=== PATIENT | female | born 1970 | race Caucasian/White ===

== ENCOUNTER 2016-02-28 13:31 | Emergency (ER) | payer OTHER ==
--- NOTE | 2016-02-28 13:33 | PDOC ---
General Adult HPI - General Chief Complaint: Eye Problem / Injury Stated Complaint: itchy eye Date Seen by Provider: 02/28/16 Time Seen by Provider: 13:40 Source: POSITIVE: Patient Exam Limitations: POSITIVE: No limitations Nurse's Notes Reviewed & Considered: Yes - History of Present Illness Initial Comment: Julia is a 46-year-old female who presents to the emergency department with possible infection on tatoo and right eye. Patient reports that she had a tattoo early in February. Since that time she has had some moderate itching at the site. Now developed erythema. There is mild burning. No exacerbating or relieving factors. Mild overall severity. She reports she did scratch site and then touched her right eye and now has erythema and swelling of the infraorbital tissues on the right. Patient denies any fevers or chills. There are no visual changes. Patient denies any eye pain. She has tried a topical Benadryl and antibiotic ointment with no improvement in her symptoms. Have you received a tetanus shot in the past 10 years?: Unknown - Patient Home Medications Home Medications: Home Medications Aripiprazole [Abilify] 1 tab PO DAILY tab 01/04/16 Lamotrigine [Lamictal] 2 tab PO DAILY tab 01/04/16 [place] Carbonate 1 cap PO DAILY cap 01/04/16 [place] Carbon[place] 1.5 tab PO bedtime tab 01/04/16 Trazodone HCl 2 tab PO DAILY tab 01/04/16 Zolpidem Tartrate [Ambien] 10 mg PO BEDTIME 02/28/16 - Patient Allergies Allergies/Adverse Reactions: Allergies Allergy/AdvReac Type Severity Reaction Status Date / Time acetaminophen [From Percocet] Allergy headache Verified 02/28/16 13:43 oxycodone HCl [From Percocet] Allergy headache Verified 02/28/16 13:43 paint Allergy HIVES Uncoded 02/28/16 13:43 Past Medical History - heen HEENT History: Denies History Cardiovascular History: Denies History Respiratory History: Denies History Gastrointestinal History: Denies History Genitourinary History: Denies History Endocrine History: Denies History Musculoskeletal History: Back Pain, Other (please comment) Additional Musculoskeletal History: chronic pain Neurological History: Denies History Blood Disorders: Denies History Psychiatric History: Depression, Bi Polar Disorder, ADD History of Sexually Transmitted Diseases: No Cancer History: Denies History History of Other Communicable Diseases: No Alcohol Use: None Substance Use Type: None Previous Surgical History: No Anesthesia Reactions: No Malignant Hyperthermia: No Past Medical History Reviewed: Reviewed - No Changes ROS - Limitations ROS Limitations: No Limitations Constitution: DENIES: Chills, Fever Cardiovascular: REPORTS: Denies Cardiac Symptoms Respiratory: REPORTS: Denies Resp Symptoms Neurological: REPORTS: Denies Neuro Symptoms Gastrointestinal: REPORTS: Denies GI Symptoms Endocrine: REPORTS: Denies Symptoms Musculoskeletal: REPORTS: Denies MS Symptoms Genitourinary: REPORTS: Denies Symptoms Eyes: REPORTS: Other (Swelling of the right infraorbital region) ENT: REPORTS: Denies Symptoms Skin: REPORTS: Other (Erythema and itchiness on the back at location of recent tattoo) Lympathic: REPORTS: Denies Lympathic Symptoms Immunologic: POSITIVE: Denies Symptoms Psychiatric: POSITIVE: Denies Psych Symptoms General Adult Exam - General Appearance General Appearance: POSITIVE: Alert, Cooperative, No Acute Distress - HEENT HEENT: POSITIVE: Head Inspection Nml, Other (There is some slight infraorbital erythema. There is some crusting lesion. He has no conjunctival injection. There is no drainage or discharge. Extraocular muscles are intact without pain. Pupils equal round and reactive to light) - Neck Neck: POSITIVE: Normal Inspection. NEGATIVE: Lymphadenopathy - Respiratory Respiratory: POSITIVE: No Respiratory Distress, Breath Sounds Normal - Cardiovascular Cardiovascular: POSITIVE: Regular Rate & Rhythm, No Murmur, No Gallop - Abdomen Abdomen: Soft: (All Quadrants), Normal Bowel Sounds: (All Quadrants), Denies Tenderness: (All Quadrants) - Back Back: POSITIVE: Normal Inspection - Skin Skin: POSITIVE: Other (On the upper back there is an area of tattoo. Surrounding this tattoo there is erythema. Some follicular nature. Appears to have some slight crusting. No drainage or discharge. No significant warmth or pain to palpation. No fluctuance.) - Extremities Extremity: Non-Tender: (All Extremities), Normal ROM: (All Extremities), Normal Inspection: (All Extremities) - Neurological / Psychological Neurological: POSITIVE: Affect Apporpriate General Adult Progress - Patient's Progress MDM / ED Course: Julia is a 46-year-old female who presents to the emergency department with multiple complaints. With regards to her tattoo is most likely is an infection. It does seem to have spread to the infraorbital tissues of the right eye contact. There is no history or examination findings to suggest that this is a retro-orbital cellulitis. It appears to be superficial. It does have the appearance of likely strep infection. Patient does not have a history of MRSA. We will cover her with Keflex and have her follow up with primary care provider for reevaluation. Patient instructed to return to the emergency department for any worsening symptoms. Patient Care Time - Estimated PCT Patient Care Time (In Minutes): 15 Vital Signs - Recent Vital Signs Vital Signs: Vital Signs (Last 8 hours) Temp Pulse Resp BP Pulse Ox 02/28/16 13:31 97.4 F 87 16 107/80 91 - VS Reviewed Vital Signs Reviewed: Yes Discharge Clinical Impression: Abscess or cellulitis of back, Preseptal cellulitis of right eye Discharge Disposition: Discharged to Home Condition: Stable Additional Instructions: Thank you for coming to the emergency department. This appears to be an infection of the skin that has spread around the eye. Please take antibiotics as prescribed. Please use benadryl 25-50 mg 2-3 times a day to help with swelling and itching. Please recheck with primary care provider if not improving and return to the emergency department sooner if worsening. Follow Up With: PAULY NAVARRETE [Primary Care Provider] -
[2016-02-28 14:05] VITALS: RESP 16; TEMP 97.4
== END 2016-02-28 14:14 | disposition home or self-care (01) ==
LOC: ER 13:31
DX: L03.213 Periorbital cellulitis (principal); L03.312 Cellulitis of back [any part except buttock and flank]
CPT/HCPCS: 99282

== ENCOUNTER 2016-03-31 21:55 | Emergency (ER) | payer OTHER ==
[2016-03-31 22:28] VITALS: RESP 18; TEMP 99.7
[2016-03-31] MEDS ORDERED: Mupirocin Ointment 2% 22 gm Tube TOPICAL SCH (22:30)
[2016-03-31] MEDS ORDERED: Mupirocin Ointment 2% 22 gm Tube TOPICAL ONE (22:30)
--- NOTE | 2016-03-31 22:31 | PDOC ---
Skin Rash/Insect/Abscess HPI - General Chief Complaint: Integumentary Stated Complaint: Skin concern from home tattoo Date Seen by Provider: 03/31/16 Time Seen by Provider: 22:26 - History of Present Illness Initial Comments: Patient is a very nice 46-year-old woman who presents to the emergency department with a wound on her left arm that has not been healing over the last 3 or 4 weeks. She states that she had a friend trying to give her a tattoo near the antecubital fossa of her left arm when it started to bleed heavily so she asked the mac artist to stop. She states that she had a pretty good hematoma under the skin there and that she has been doctoring this at home for the last 3 or 4 weeks and he continues to have some mild redness some swelling and area of open wound down to subcutaneous tissue in the antecubital fossa. She denies any fever or chills she denies any distal swelling or rash she states that the rash that is present around the opening is pruritic in nature. She does not get any purulence from the wound. She states the wound is closing somewhat and getting smaller over time. Have you received a tetanus shot in the past 10 years?: Unknown - Patient Home Medications Home Medications: Home Medications Aripiprazole [Abilify] 1 tab PO DAILY tab 01/04/16 Lamotrigine [Lamictal] 2 tab PO DAILY tab 01/04/16 [place] Carbonate 1 cap PO DAILY cap 01/04/16 [place] Carbonate 1.5 tab PO bedtime tab 01/04/16 Trazodone HCl 2 tab PO DAILY tab 01/04/16 Zolpidem Tartrate [Ambien] 10 mg PO BEDTIME 02/28/16 - Patient Allergies Allergies/Adverse Reactions: Allergies Allergy/AdvReac Type Severity Reaction Status Date / Time paint Allergy HIVES Uncoded 03/31/16 22:04 Past Medical History - heen HEENT History: Denies History Cardiovascular History: Denies History Respiratory History: Denies History Gastrointestinal History: Denies History Genitourinary History: Denies History Endocrine History: Denies History Musculoskeletal History: Back Pain, Other (please comment) Prosthesis or Implant: No Additional Musculoskeletal History: chronic pain Neurological History: Denies History Blood Disorders: Denies History Psychiatric History: Depression, Bi Polar Disorder, ADD History of Sexually Transmitted Diseases: No Cancer History: Denies History History of MDRO: No History of Other Communicable Diseases: No Alcohol Use: None Substance Use Type: None Previous Surgical History: No Type / Date of Surgery: LEFT ARM, BILATERAL KNEE SCOPE, CHOLECYSTECTOMY, TUBAL LIGATION Anesthesia Reactions: No Malignant Hyperthermia: No Significant Family History: No pertinent family hx Past Medical History Reviewed: Reviewed - No Changes ROS - Limitations ROS Limitations: No Limitations Constitution: REPORTS: Denies Symptoms. DENIES: Chills, Fever Cardiovascular: REPORTS: Denies Cardiac Symptoms, Chest Pain Respiratory: REPORTS: Denies Resp Symptoms Neurological: REPORTS: Denies Neuro Symptoms Skin Rash/Insect/Abscess Exam - General Appearance General Appearance: REPORTS: Alert, Cooperative, No Acute Distress - Skin Skin: REPORTS: Other (No substantial redness or sign of cellulitis She has a small approximately 1 cm x 1 cm open wound in the left antecubital fossa open to subcutaneous tissue with some dried appearing granulation tissue in the base. There is no evidence of sidney cellulitis there is a pruritic maculopapular rash around this area and some tenderness with palpation around the area as well.) Skin Rash/Abscess Progress - Patient's Progress MDM / ED Course: This wound appears to be slowly healing with some appropriate granulation tissue and wound margin appearing fairly healthy. No evidence of substantial cellulitis or infection. I think she is likely developing some allergic reaction or response to the Neosporin she is using so I've asked her to stop using that and use some Bactroban with dressing changes over the next few days and have this evaluated by a primary care provider they can follow it over time as soon as possible. She understands the starts to become increasingly red swollen tender or have purulent discharge and is return to the hospital for further evaluation. Patient Care Time - Estimated PCT Patient Care Time (In Minutes): 20 Vital Signs - VS Reviewed Vital Signs Reviewed: Yes Discharge Clinical Impression: Open arm wound Qualifiers: Encounter type: initial encounter Laterality: left Qualifier Code: (S41.102A) Unspecified open wound of left upper arm, initial encounter Discharge Disposition: Discharged to Home Condition: Stable Patient Instructions Given at Discharge: Acute Wound Care (ED) Additional Instructions: Change dressing twice a day using Bactroban with dressing change Follow-up with primary care provider soon as possible to continue monitoring this wound If this begins to worsen have increased drainage or increased redness pain or swelling return to the emergency department for further evaluation Follow Up With: NONE,NONE [Primary Care Provider] -
== END 2016-03-31 22:37 | disposition home or self-care (01) ==
LOC: ER 21:55
DX: S41.102A Unspecified open wound of left upper arm, initial encounter (principal)
CPT/HCPCS: 99282

== ENCOUNTER → 2016-06-03 | Outpatient (CLI) | payer OTHER | LOC: MMPC 09:00 | DX: R22.42 Localized swelling, mass and lump, left lower limb (principal) | CPT/HCPCS: 99212; G0463 ==

== ENCOUNTER 2016-06-19 15:40 | Emergency (ER) | payer OTHER ==
[2016-06-19] MEDS ORDERED: Sodium Chloride 0.9% 1,000 ML PRIMARY IV ONE (15:52)
[2016-06-19] MEDS ORDERED: MORPHINE SULFATE 4 MG/1 ML IVP ONE ×2 (15:52→18:05)
[2016-06-19] MEDS ORDERED: ONDANSETRON 4 MG/2 ML VIAL IVP ONE ×2 (15:52→18:22)
--- NOTE | 2016-06-19 15:58 | PDOC ---
Abdomen/Flank HPI - General Chief Complaint: Abdomen Pain Stated Complaint: ABD PAIN/FIRMNESS, NAUSEA, TROUBLE PASSING STOOL Date Seen by Provider: 06/19/16 Time Seen by Provider: 15:54 Source: POSITIVE: Patient Exam Limitations: POSITIVE: No limitations Nurse's Notes Reviewed & Considered: Yes - History of Present Illness Initial Comments: Patient comes in today with a chief complaint of abdominal pain. Patient was diagnosed on Thursday with diverticulitis. She was started on Cipro and Flagyl. She made a trip today to [place], and on the way back developed abdominal distention and increasing pain. She attempted to have a bowel movement and had very little passage of stool or gas. Her abdominal pain is continued along with increasing distention. It's but denies any fever and chills. She states she has no nausea no vomiting. No headache, no chest pain, no shortness of breath, no cough. Hematuria or dysuria. No rashes. Body Location Affected: REPORTS: Abdomen Timing: REPORTS: Constant Duration: <1 week Severity: Moderate Quality: REPORTS: "Pain", Sharpness, Stabbing, Throbbing, Tenderness (Left lower quadrant radiating to generalized abdomen) Abdominal Pain Onset Location: REPORTS: LLQ, Generalized abdomen Abdominal Pain Radiation: REPORTS: RUQ, LUQ, Periumbilical Context: REPORTS: None Modifying Factors: improves with: Nothing Associated Symptoms: REPORTS: Diaphoresis, Other (Difficulty passing gas or stool) Similar Symptoms Previously: Yes Recent Care Received: REPORTS: Recently Seen, Treated by MD Any Prior Injuries Related to Current Complaint?: No - Patient Home Medications Home Medications: Home Medications Trazodone HCl 2 tab PO DAILY tab 01/04/16 HYDROcodone/APAP 5/325 Tab [[place] 5/325 Tab] 1 tab PO Q4H PRN 06/19/16 - Patient Allergies Allergies/Adverse Reactions: Allergies Allergy/AdvReac Type Severity Reaction Status Date / Time No Known Drug Allergies Allergy NOT Verified 06/19/16 15:47 APPLICABLE paint Allergy HIVES Uncoded 06/19/16 15:47 Past Medical History - heen HEENT History: Denies History Cardiovascular History: Denies History Respiratory History: Denies History Gastrointestinal History: Denies History Genitourinary History: Denies History Endocrine History: Denies History Musculoskeletal History: Back Pain, Other (please comment) Prosthesis or Implant: No Additional Musculoskeletal History: chronic pain Neurological History: Denies History Blood Disorders: Denies History Psychiatric History: Depression, Bi Polar Disorder, ADD History of Sexually Transmitted Diseases: No Cancer History: Denies History History of MDRO: No History of Other Communicable Diseases: No Alcohol Use: None Substance Use Type: None Previous Surgical History: No Type / Date of Surgery: LEFT ARM, BILATERAL KNEE SCOPE, CHOLECYSTECTOMY, TUBAL LIGATION Anesthesia Reactions: No Malignant Hyperthermia: No Significant Family History: No pertinent family hx ROS - Limitations ROS Limitations: No Limitations Constitution: REPORTS: Diaphoresis Cardiovascular: REPORTS: Denies Cardiac Symptoms Respiratory: REPORTS: Denies Resp Symptoms Neurological: REPORTS: Denies Neuro Symptoms Gastrointestinal: REPORTS: Abdominal Pain, Constipation Endocrine: REPORTS: Denies Symptoms Musculoskeletal: REPORTS: Denies MS Symptoms Genitourinary: REPORTS: Denies Symptoms Eyes: REPORTS: Denies Symptoms ENT: REPORTS: Denies Symptoms Skin: REPORTS: Denies Skin Symptoms Lympathic: REPORTS: Denies Lympathic Symptoms Immunologic: POSITIVE: Denies Symptoms Psychiatric: POSITIVE: Denies Psych Symptoms Abdominal/Flank Pain PE - General Appearance General Appearance: POSITIVE: Alert, Cooperative, No Evidence of Trauma, Moderate Distress - HEENT HEENT: POSITIVE: Head Inspection Nml, Eyes Inspection Nml, Ears Inspection Nml, Nose Inspection Nml, PERRL, EOMI - Neck Neck: POSITIVE: Normal Inspection, No Apparent Injury - Respiratory Respiratory: POSITIVE: No Respiratory Distress, Breath Sounds Normal, Chest Non- Tender - Cardiovascular Cardiovascular: POSITIVE: Regular Rate and Rhythm, Heart Sounds Normal - Abdomen Abdomen: Soft: (All Quadrants), Tenderness Noted: (All Quadrants) (greatest in the left lower quadrant), Hyperactive Bowel Sounds: (All Quadrants), Distention : (All Quadrants), Guarding: (All Quadrants) (guarding of the left lower quadrant) - Back Back: POSITIVE: Normal Inspection - Skin Skin: POSITIVE: Intact, Normal For Race, Warm, Dry, No Rash - Extremities Extremity: Non-Tender: (All Extremities), Normal ROM: (All Extremities), Normal Inspection: (All Extremities), Pelvis Stable: (All Extremities) - Neurological Neurological: POSITIVE: Affect Apporpriate, Oriented X3, Motor Normal, Sensation Normal - Psychological Psychiatric: POSITIVE: Affect Appropriate, Mood Appropriate Abdomen Progress - Results Reviewed by me Xrays/CTs/US Reviewed by me: Yes Discussed with Radiologist: Yes Lab Results Reviewed: Yes Lab Results:: Laboratory Results 06/19/16 06/19/16 Range/Units 15:52 16:24 WBC 5.41 (4.8-10.8) 10^3/uL RBC 4.32 (4.20-5.40) 10^6/uL Hgb 13.5 (12.0-16.0) g/dL Hct 41.6 (37.0-47.0) % MCV 96.3 (81-99) FL MCH 31.3 H (27-31) PG MCHC 32.5 L (33-37) g/dL RDW Std Deviation 45.0 (39-50) fL RDW Coeff of [place] 13.2 (11.5-14.5) % Plt Count 210 (140-350) 10*3/uL MPV 9.9 (7.4-12.2) FL Immature Gran % (Auto) 0.6 (0-5) % Neut % (Auto) 64.4 (50-80) % Lymph % (Auto) 24.6 (10-50) % [place] % (Auto) 7.0 (5-15) % Eos % (Auto) 3.0 (0-8) % Baso % (Auto) 0.4 (0-1) % Immature Gran # (Auto) 0.03 10*3/UL Neut # (Auto) 3.49 10*3/UL Lymph # (Auto) 1.33 10*3/uL [place] # (Auto) 0.38 (0.3-0.8) 10*3/UL Eos # (Auto) 0.16 10*3/UL Baso # (Auto) 0.02 10*3/UL WBC Morphology Comment Normal morphology (NORM) Plt Morphology Comment Normal morphology (NORM) RBC Morph Comment Normal morphology (NORM) VBG pH 7.35 (7.32-7.42) VBG pCO2 48 (45-55) mmHg VBG HCO3 27 H (22-26) mmol/L VBG Base Excess 1 (-2-2) MMOL/L Sodium 140 (135-145) meq/L Potassium 3.7 L (3.8-5.2) meq/L Chloride 103 (98-112) meq/L Carbon Dioxide 27 (23-33) meq/L Anion Gap 10 (5-20) BUN 13 (7-22) mg/dL Creatinine 0.8 (0.50-1.20) mg/dL Estimated GFR > 60 (>60 ml/min/1.73m(2)) BUN/Creatinine Ratio 16.25 (6-20) Glucose 109 (78-110) mg/dL Calculated Osmolality 290.0 (267-292) mOsm/kg Lactic Acid 1.4 (0.70-2.10) MMOL/L Calcium 8.6 L (8.7-10.7) mg/dL Magnesium 1.7 (1.6-2.4) mg/dL Total Bilirubin 0.7 (0.3-1.2) mg/dL AST 27 (8-39) IU/L ALT 56 H (9-52) IU/L Alkaline Phosphatase 63 (38-126) IU/L C-Reactive Protein 6.7 H (0.0-0.9) mg/dL Total Protein 6.8 (6.1-8.0) g/dL Albumin 3.6 (3.5-4.8) g/dL Globulin 3.1 (2.50-4.10) g/dL Albumin/Globulin Ratio 1.10 L (1.3-2.0) mg/g - Patient's Progress Pain Medication Addressed: POSITIVE: Yes Re-examine Time: 18:38 Status: POSITIVE: Improved MDM / ED Course: Patient was evaluated, an IV started, blood drawn and sent to the lab for studies, radiographic examinations were obtained. Patient received a liter of normal saline, morphine sulfate, Zofran and her pain has improved. Findings: CT scan shows acute diverticulitis without abscess or perforation. CBC shows a normal white count. Assessment diverticulitis without evidence of perforation or abscess. Presently on ciprofloxacin and Flagyl. Plan: Discharge home. Continue with prescribed antibiotics and hydrocodone as prescribed. She receives a prescription for Zofran. Instructions for clear liquids today, bland diet tomorrow, advance diet slowly. She is to follow-up with her primary care physician. She has instructions to return to the emergency department if she begins running a fever, increasing pain, diarrhea with blood or other concerns. - Consult Counseled: POSITIVE: Patient, Family, RE: Lab Results, RE: Radiology Results, RE : DX, RE: Need for F/U Patient Care Time - Estimated PCT Patient Care Time (In Minutes): 45 Vital Signs - Recent Vital Signs Vital Signs: Vital Signs (Last 8 hours) Temp Pulse Resp BP Pulse Ox 06/19/16 15:40 96.9 F 84 17 117/75 96 - VS Reviewed Vital Signs Reviewed: Yes Discharge Clinical Impression: Diverticulitis of intestine Discharge Disposition: Discharged to Home Condition: Stable Patient Instructions Given at Discharge: Diverticulitis (ED), Diverticulitis Diet (ED)
[2016-06-19 15:59] LABS: BASOPHILS # (AUTO) 0.02 10*3/UL; BASOPHILS % (AUTO) 0.4 % (0-1); EOSINOPHILS # (AUTO) 0.16 10*3/UL; HEMATOCRIT 41.6 % (37.0-47.0); HEMOGLOBIN 13.5 g/dL (12.0-16.0); LYMPHOCYTES # (AUTO) 1.33 10*3/uL; MEAN CORPUSCULAR HEMOGLOBIN 31.3 PG (27-31); MEAN CORPUSCULAR HGB CONC 32.5 g/dL (33-37); MEAN CORPUSCULAR VOLUME 96.3 FL (81-99); MEAN PLATELET VOLUME 9.9 FL (7.4-12.2); MONOCYTES # (AUTO) 0.38 10*3/UL (0.3-0.8); NEUTROPHILS # (AUTO) 3.49 10*3/UL; NEUTROPHILS % (AUTO) 64.4 % (50-80); RED BLOOD COUNT 4.32 10^6/uL (4.20-5.40)
[2016-06-19 16:01] LABS: PLATELET MORPHOLOGY COMMENT NORMAL MORPHOLOGY (NORM); RBC MORPHOLOGY COMMENT NORMAL MORPHOLOGY (NORM); WBC MORPHOLOGY COMMENT NORMAL MORPHOLOGY (NORM)
[2016-06-19 16:18] VITALS: TEMP 96.9
[2016-06-19 16:32] LABS: VENOUS PH 7.35 (7.32-7.42)
[2016-06-19 16:42] LABS: BLOOD UREA NITROGEN 13 mg/dL (7-22); BUN/CREATININE RATIO 16.25 (6-20); C-REACTIVE PROTEIN 6.7 mg/dL (0.0-0.9); CALCIUM 8.6 mg/dL (8.7-10.7); EST GLOMERULAR FILTRATION > 60 (>60 ml/min/1.73m(2)); MAGNESIUM 1.7 mg/dL (1.6-2.4); SERUM ALBUMIN 3.6 g/dL (3.5-4.8)
[2016-06-19] MEDS: NORMAL SALINE 10 ML SYRINGE FLUSH IVP PRN ×2 (18:18→18:22)
--- NOTE | 2016-06-19 18:21 | DI ---
CT ABD W/CN AND PELVIS W/CN,06/19/2016 3:52 PM: Clinical History: Left lower quadrant pain Previous Exam: None at this facility. Findings: Multiple helically acquired CT images are obtained through the abdomen and pelvis following the intra venous administration of contrast. There is no free air nor free fluid. The urinary bladder is unremarkable. The uterus is unremarkable and the appendix is normal. There is a single inflamed diverticulum involv ing the proximal sigmoid colon within the left lower quadrant with fat stranding. There is no associa domo abscess nor free air. Impression: Acute sigmoid diverticulitis without evidence of abscess nor perforation.
[2016-06-19] MEDS ORDERED: NORMAL SALINE 10 ML SYRINGE FLUSH IVP PRN (18:29)
[2016-06-19] MEDS ORDERED: Ondansetron ODT Tab 8 MG TAB PO SCH (18:45)
[2016-06-20 06:04] VITALS: RESP 16
== END 2016-06-19 19:10 | disposition home or self-care (01) ==
LOC: ER 15:40
DX: K57.12 Diverticulitis of small intestine without perforation or abscess without bleeding (principal); R10.84 Generalized abdominal pain
CPT/HCPCS: 36415; 74177; 80053; 82803; 83605; 83735; 85025; 86140; 96361; 96374; 96375; 96376; 99283 ×2; Q0162; J2270; J2405; J7030

== ENCOUNTER → 2016-07-01 | Outpatient (CLI) | payer OTHER | LOC: MMPC 11:11 | PROVIDERS: ATTEND Physician Assistant | DX: J06.9 Acute upper respiratory infection, unspecified (principal); R05 Cough | CPT/HCPCS: 99213; G0463 ==

== ENCOUNTER → 2016-07-02 | Outpatient (CLI) | payer OTHER ==
[2016-07-02 16:33] LABS: FREE T4 (FREE THYROXINE) 0.82 ng/dL (0.93-1.71)
== END ==
LOC: MOB LAB 13:29
PROVIDERS: ATTEND Obstetrics & Gynecology
DX: R94.6 Abnormal results of thyroid function studies (principal); N92.0 Excessive and frequent menstruation with regular cycle; N94.6 Dysmenorrhea, unspecified; F19.90 Other psychoactive substance use, unspecified, uncomplicated; Z11.3 Encounter for screening for infections with a predominantly sexual mode of transmission
CPT/HCPCS: 36415; 84439; 84443; 87491; 87591

== ENCOUNTER 2016-07-06 19:01 | Inpatient (IN) | payer OTHER ==
[2016-07-06] MEDS ORDERED: ONDANSETRON 4 MG/2 ML VIAL IVP ONE (19:15)
[2016-07-06] MEDS ORDERED: MORPHINE SULFATE 4 MG/1 ML IVP ONE ×2 (19:15→21:20)
--- NOTE | 2016-07-06 19:19 | PDOC ---
Abdomen/Flank HPI - General Chief Complaint: Abdomen Pain Stated Complaint: Left lower quadrant pain Date Seen by Provider: 07/06/16 Time Seen by Provider: 19:14 Source: POSITIVE: Patient Exam Limitations: POSITIVE: No limitations Nurse's Notes Reviewed & Considered: Yes - History of Present Illness Initial Comments: Patient was in her normal state of health after she got off work this morning at 0700, she went to bed and when she awoke at 1800 hrs. she was having left lower quadrant pain similar to symptoms from 2 weeks ago. She has chills but no sweats, she has nausea but no vomiting, she does have diarrhea. She states her urine is concentrated and has a strong odor. She denies any headache, chest pain, shortness of breath. She describes her pain as crampy with a sharp component and tenderness in the left lower quadrant. She does have guarding. She just finished 10 days of antibiotic treatment with Cipro and Flagyl. She continues to eat [employer], [employer], and [employer] restaurant food. Body Location Affected: REPORTS: Abdomen Timing: REPORTS: Abrupt Duration: 1 hour Severity: Moderate Quality: REPORTS: Cramping, "Pain", Sharpness, Stabbing, Tenderness Abdominal Pain Onset Location: REPORTS: LLQ Abdominal Pain Radiation: REPORTS: RLQ, Periumbilical Context: REPORTS: Sleep Modifying Factors: improves with: Nothing Associated Symptoms: REPORTS: Chills, Nausea, Diarrhea Similar Symptoms Previously: Yes Recent Care Received: REPORTS: Denies Any Prior Injuries Related to Current Complaint?: No - Patient Home Medications Home Medications: Home Medications Trazodone HCl 2 tab PO DAILY tab 01/04/16 Albuterol Sulfate [Proair Hfa] 1 - 2 puff INH Q4-6H #1 inhaler 07/01/16 Benzonatate 200 mg PO TID #30 cap 07/01/16 Cefdinir 600 mg PO DAILY #20 cap 07/01/16 Cetirizine HCl [Zyrtec] 10 mg PO DAILY #90 tab 07/01/16 Fluticasone Propionate [Flonase Allergy Relief] 9.9 ml TATI BID #1 bottle Guaifenesin/Codeine Phos [Cheratussin Ac Syrup] 5 ml PO Q6H #120 ml 07/01/16 Levothyroxine Sodium 1 tab PO QHS #30 tab 07/02/16 - Patient Allergies Allergies/Adverse Reactions: Allergies Allergy/AdvReac Type Severity Reaction Status Date / Time No Known Drug Allergies Allergy NOT Verified 07/06/16 19:05 APPLICABLE paint Allergy HIVES Uncoded 07/06/16 19:05 Past Medical History - heen HEENT History: Denies History Cardiovascular History: Denies History Respiratory History: Other (please comment) Additional Respiratory History: CURRENTLY BEING TREATED FOR URI Gastrointestinal History: Other (please comment) Additional Gastrointestinal History: DIAGNOSED WITH DIVERTICULITIS 06/19/16 Genitourinary History: Denies History Endocrine History: Denies History Musculoskeletal History: Back Pain, Other (please comment) Prosthesis or Implant: No Additional Musculoskeletal History: chronic pain Neurological History: Denies History Blood Disorders: Denies History Psychiatric History: Depression, Bi Polar Disorder, ADD History of Sexually Transmitted Diseases: No Female Reproductive History: Denies History Obstetrical History: Denies History Cancer History: Denies History In Past Year Been Physically Harmed or Verbally Threatened: No History of MDRO: No History of Other Communicable Diseases: No Tobacco Use: Current Every Day Smoker Alcohol Use: None Substance Use Type: None Previous Surgical History: No Type / Date of Surgery: LEFT ARM, BILATERAL KNEE SCOPE, CHOLECYSTECTOMY, TUBAL LIGATION Anesthesia Reactions: No Malignant Hyperthermia: No Significant Family History: No pertinent family hx ROS - Limitations ROS Limitations: No Limitations Constitution: REPORTS: Chills Cardiovascular: REPORTS: Denies Cardiac Symptoms Respiratory: REPORTS: Denies Resp Symptoms Neurological: REPORTS: Denies Neuro Symptoms Gastrointestinal: REPORTS: Abdominal Pain, Nausea, Diarrhea Endocrine: REPORTS: Denies Symptoms Musculoskeletal: REPORTS: Denies MS Symptoms Genitourinary: REPORTS: Other (Concentrated urine with strong odor) Eyes: REPORTS: Denies Symptoms ENT: REPORTS: Denies Symptoms Skin: REPORTS: Denies Skin Symptoms Lympathic: REPORTS: Denies Lympathic Symptoms Immunologic: POSITIVE: Denies Symptoms Psychiatric: POSITIVE: Denies Psych Symptoms Abdominal/Flank Pain PE - General Appearance General Appearance: POSITIVE: Alert, Cooperative, No Evidence of Trauma, Mild Distress - HEENT HEENT: POSITIVE: Head Inspection Nml, Eyes Inspection Nml, Ears Inspection Nml, Nose Inspection Nml, PERRL, EOMI - Neck Neck: POSITIVE: Normal Inspection, No Apparent Injury - Respiratory Respiratory: POSITIVE: No Respiratory Distress, Breath Sounds Normal, Chest Non- Tender - Cardiovascular Cardiovascular: POSITIVE: Regular Rate and Rhythm, Heart Sounds Normal Peripheral Pulses: Radial (L): 3+ - Chest Chest: POSITIVE: Non Tender - Abdomen Abdomen: Soft: (All Quadrants), Normal Bowel Sounds: (All Quadrants), Tenderness Noted: (LLQ), Guarding: (LLQ) - Back Back: POSITIVE: Normal Inspection - Skin Skin: POSITIVE: Intact, Normal For Race, Warm, Dry, No Rash - Extremities Extremity: Non-Tender: (All Extremities), Normal ROM: (All Extremities), Normal Inspection: (All Extremities), Pelvis Stable: (All Extremities) - Neurological Neurological: POSITIVE: Affect Apporpriate, Oriented X3, Motor Normal, Sensation Normal - Psychological Psychiatric: POSITIVE: Affect Appropriate, Mood Appropriate Abdomen Progress - Results Reviewed by me Xrays/CTs/US Reviewed by me: Yes Discussed with Radiologist: Yes Lab Results Reviewed: Yes Lab Results:: Laboratory Results 07/06/16 07/06/16 07/06/16 Range/Units 19:20 19:27 20:18 WBC 8.57 (4.8-10.8) 10^3/uL RBC 4.59 (4.20-5.40) 10^6/uL Hgb 14.7 (12.0-16.0) g/dL Hct 42.9 (37.0-47.0) % MCV 93.5 (81-99) FL MCH 32.0 H (27-31) PG MCHC 34.3 (33-37) g/dL RDW Std Deviation 44.6 (39-50) fL RDW Coeff of Lexus 13.3 (11.5-14.5) % Plt Count 256 (140-350) 10*3/uL MPV 9.7 (7.4-12.2) FL Immature Gran % (Auto) 0.1 (0-5) % Neut % (Auto) 69.3 (50-80) % Lymph % (Auto) 22.1 (10-50) % [place] % (Auto) 5.8 (5-15) % Eos % (Auto) 1.9 (0-8) % Baso % (Auto) 0.8 (0-1) % Immature Gran # (Auto) 0.01 10*3/UL Neut # (Auto) 5.94 10*3/UL Lymph # (Auto) 1.89 10*3/uL [place] # (Auto) 0.50 (0.3-0.8) 10*3/UL Eos # (Auto) 0.16 10*3/UL Baso # (Auto) 0.07 10*3/UL WBC Morphology Comment Normal morphology (NORM) Plt Morphology Comment Normal morphology (NORM) RBC Morph Comment Normal morphology (NORM) VBG pH 7.44 H (7.32-7.42) VBG pCO2 31 L (45-55) mmHg VBG HCO3 21 L (22-26) mmol/L VBG Base Excess -3 L (-2-2) MMOL/L Sodium 139 (135-145) meq/L Potassium 3.5 L (3.8-5.2) meq/L Chloride 103 (98-112) meq/L Carbon Dioxide 27 (23-33) meq/L Anion Gap 9 (5-20) BUN 11 (7-22) mg/dL Creatinine 0.8 (0.50-1.20) mg/dL Estimated GFR > 60 (>60 ml/min/1.73m(2)) BUN/Creatinine Ratio 13.75 (6-20) Glucose 106 (78-110) mg/dL Calculated Osmolality 286.0 (267-292) mOsm/kg Lactic Acid 1.2 (0.70-2.10) MMOL/L Calcium 9.0 (8.7-10.7) mg/dL Magnesium 1.7 (1.6-2.4) mg/dL Total Bilirubin 1.1 (0.3-1.2) mg/dL AST 23 (8-39) IU/L ALT 33 (9-52) IU/L Alkaline Phosphatase 74 (38-126) IU/L C-Reactive Protein 2.1 H (0.0-0.9) mg/dL Total Protein 7.4 (6.1-8.0) g/dL Albumin 4.1 (3.5-4.8) g/dL Globulin 3.3 (2.50-4.10) g/dL Albumin/Globulin Ratio 1.20 L (1.3-2.0) mg/g Ur Collection Type Clean catch urine Urine Color Yellow Urine Clarity Clear (CLEAR) Urine pH 7.0 (5.0-8.5) Ur Specific [place] 1.034 (1.005-1.030) Urine Protein Negative (NEG) mg/dl Urine Glucose (UA) Negative (NEG) mg/dL Urine Ketones Negative (NEG) Urine Occult Blood Small H (NEG) Urine Nitrate Negative (NEG) Urine Bilirubin Negative (NEG) Urine Urobilinogen 0.2 (0.2) EU/dL Ur Leukocyte Esterase Negative (NEG) Urine RBC 1-3 (NONE) /hpf Urine WBC 0-1 (NONE) Ur Squamous Epith Cells Moderate (NONE) Ur Renal Epithelial Cell None (NONE) Urine Crystals None Urine Bacteria Rare (NONE) Urine Casts None (NONE) Urine Mucus None (NONE) Urine Trichomonas None (NONE) Urine Yeast None (NONE) Ur Culture Indicated? Culture not set - Patient's Progress Pain Medication Addressed: POSITIVE: Yes Re-examine Time: 22:09 Status: POSITIVE: Improved MDM / ED Course: Patient was evaluated, IV started, blood drawn and sent to the lab for studies, radiographic examinations were obtained. Patient received IV morphine, Zofran, and normal saline. Her pain minimally improved. Findings: CBC shows a normal white count. CT scan of her abdomen shows diverticulitis in the left lower quadrant with stranding of the mesenteric fat. Assessment: Diverticulitis. Plan: Admission, IV Invanz, IV pain control. I have contacted Dr. ibarra, the on -call surgeon, who will see this patient tomorrow in the hospital. - Consult Consult (If Yes, Name of Consulting MD & Time Called): Yes (Dr Ibarra 2003) Consulting MD will see pt:: POSITIVE: [facility] Admit Counseled: POSITIVE: Patient, RE: Lab Results, RE: Radiology Results, RE: DX Patient Care Time - Estimated PCT Patient Care Time (In Minutes): 45 Vital Signs - Recent Vital Signs Vital Signs: Vital Signs (Last 8 hours) Temp Pulse Resp BP Pulse Ox 07/06/16 19:02 97.1 F 97 20 129/89 95 - VS Reviewed Vital Signs Reviewed: Yes Discharge Clinical Impression: Diverticulitis Discharge Disposition: Admit to Inpatient Condition: Stable Patient Instructions Given at Discharge: Diverticulitis (ED) Date Decision to Admit to Inpatient: 07/06/16 Time Decision to Admit to Inpatient: 22:13
[2016-07-06] MEDS: Sodium Chloride 0.9% 1,000 ML PRIMARY IV ONE ×2 (19:20→21:45)
[2016-07-06 19:39] LABS: VENOUS PH 7.44 (7.32-7.42)
[2016-07-06 19:39] LABS: HEMATOCRIT 42.9 % (37.0-47.0); HEMOGLOBIN 14.7 g/dL (12.0-16.0); MEAN CORPUSCULAR HGB CONC 34.3 g/dL (33-37); MEAN CORPUSCULAR VOLUME 93.5 FL (81-99); MEAN PLATELET VOLUME 9.7 FL (7.4-12.2); NEUTROPHILS % (AUTO) 69.3 % (50-80); RED BLOOD COUNT 4.59 10^6/uL (4.20-5.40)
[2016-07-06 19:40] LABS: BASOPHILS # (AUTO) 0.07 10*3/UL; BASOPHILS % (AUTO) 0.8 % (0-1); EOSINOPHILS # (AUTO) 0.16 10*3/UL; EOSINOPHILS % (AUTO) 1.9 % (0-8); LYMPHOCYTES # (AUTO) 1.89 10*3/uL; MONOCYTES % (AUTO) 5.8 % (5-15); NEUTROPHILS # (AUTO) 5.94 10*3/UL; PLATELET MORPHOLOGY COMMENT NORMAL MORPHOLOGY (NORM); RBC MORPHOLOGY COMMENT NORMAL MORPHOLOGY (NORM); WBC MORPHOLOGY COMMENT NORMAL MORPHOLOGY (NORM)
[2016-07-06 19:47] LABS: BLOOD UREA NITROGEN 11 mg/dL (7-22); BUN/CREATININE RATIO 13.75 (6-20); C-REACTIVE PROTEIN 2.1 mg/dL (0.0-0.9); EST GLOMERULAR FILTRATION > 60 (>60 ml/min/1.73m(2)); MAGNESIUM 1.7 mg/dL (1.6-2.4); SERUM ALBUMIN 4.1 g/dL (3.5-4.8)
[2016-07-06 20:17] LABS: BILIRUBIN,URINE NEGATIVE (NEG); COLOR,URINE YELLOW; GLUCOSE, URINE (UA) NEGATIVE (NEG); NITRATE,URINE NEGATIVE (NEG); OCCULT BLOOD,URINE SMALL (NEG); PROTEIN,URINE NEGATIVE (NEG); UROBILINOGEN,URINE 0.2 EU/dL (0.2)
[2016-07-06 20:18] LABS: CLARITY,URINE CLEAR (CLEAR)
[2016-07-06 20:19] LABS: BACTERIA,URINE RARE; SQUAMOUS EPITHELIAL CELL,UR MODERATE; URINE SAMPLE TYPE CLEAN CATCH URINE; WBC,URINE 0-1
[2016-07-06] MEDS ORDERED: Ertapenem Inj 1 GM in Sodium Chloride 0.9% 100 ML IV ONE (21:19)
--- NOTE | 2016-07-06 21:34 | DI ---
HISTORY: Left lower quadrant pain with nausea and diarrhea. PREVIOUS EXAM: 06/19/2016. TECHNIQUE: Multiple helically acquired CT images are obtained through the abdomen and pelvis followi ng the intravenous demonstration contrast. FINDINGS: The urinary bladder is unremarkable. The appendix is normal. There is no free air nor free fluid. There are some cystic areas within the right ovary. Skeletal structures are unremarkable. There is no mesenteric or retroperitoneal lymphadenopathy. There is an inflamed diverticulum in the left lower quadrant without abscess nor free air. Lung bases are clear. IMPRESSION: 1. There is fat stranding within the left lower quadrant surrounding a single colonic diverticula co nsistent with acute diverticulitis. There is no evidence of perforation or abscess.
[2016-07-06] MEDS ORDERED: LIDOCAINE W/ SODIUM BICARB 0.5 ML SYR SUBD PRN (22:40)
[2016-07-06] MEDS: LEVOTHYROXINE 50 MCG TABLET PO SCH (23:19)
[2016-07-06] MEDS: GUAIFENESIN/CODEINE SYRUP 100 MG/ 10 MG/ 5 ML UD CUP PO PRN (23:19)
[2016-07-06] MEDS: fentaNYL Inj 100 MCG/2 ML VIAL IVP PRN (23:20)
[2016-07-06] MEDS: HEPARIN 5000 UNIT/1 ML SUBCUT SCH (23:20)
[2016-07-06] MEDS: NORMAL SALINE 10 ML SYRINGE FLUSH IVP PRN (23:23)
[2016-07-06] MEDS: ALBUTEROL SULFATE 8.5 GM HFA INHALER INH SCH (23:26)
[2016-07-07] MEDS: traZODone Tab 50 MG TAB PO SCH ×2 (00:05→20:43)
[2016-07-07] MEDS ORDERED: traZODone Tab 50 MG TAB PO ONE (00:05)
[2016-07-07] MEDS ORDERED: NICOTINE 21 MG /DAY PATCH TRANSDERM ONE (00:05)
[2016-07-07] MEDS: NICOTINE 21 MG /DAY PATCH TRANSDERM SCH ×2 (00:13→09:17)
[2016-07-07] MEDS: fentaNYL Inj 100 MCG/2 ML VIAL IVP PRN ×5 (01:57→13:54)
[2016-07-07] MEDS: ALBUTEROL SULFATE 8.5 GM HFA INHALER INH SCH ×6 (02:58→23:54)
[2016-07-07] MEDS: NORMAL SALINE 10 ML SYRINGE FLUSH IVP PRN (04:22)
[2016-07-07] MEDS: GUAIFENESIN/CODEINE SYRUP 100 MG/ 10 MG/ 5 ML UD CUP PO PRN ×2 (05:11→14:00)
[2016-07-07 06:38] LABS: HEMATOCRIT 36.3 % (37.0-47.0); HEMOGLOBIN 12.1 g/dL (12.0-16.0); MEAN CORPUSCULAR HEMOGLOBIN 31.8 PG (27-31); MEAN CORPUSCULAR HGB CONC 33.3 g/dL (33-37); MEAN CORPUSCULAR VOLUME 95.3 FL (81-99); MEAN PLATELET VOLUME 9.9 FL (7.4-12.2); RED BLOOD COUNT 3.81 10^6/uL (4.20-5.40)
[2016-07-07 06:39] LABS: BASOPHILS # (AUTO) 0.04 10*3/UL; BASOPHILS % (AUTO) 0.6 % (0-1); BLOOD UREA NITROGEN 8 mg/dL (7-22); BUN/CREATININE RATIO 11.42 (6-20); CALCIUM 7.9 mg/dL (8.7-10.7); EOSINOPHILS # (AUTO) 0.17 10*3/UL; EOSINOPHILS % (AUTO) 2.4 % (0-8); EST GLOMERULAR FILTRATION > 60 (>60 ml/min/1.73m(2)); LIPASE 43 IU/L (23-300); LYMPHOCYTES # (AUTO) 2.32 10*3/uL; MONOCYTES # (AUTO) 0.47 10*3/UL (0.3-0.8); MONOCYTES % (AUTO) 6.5 % (5-15); NEUTROPHILS # (AUTO) 4.21 10*3/UL; NEUTROPHILS % (AUTO) 58.3 % (50-80); PLATELET MORPHOLOGY COMMENT NORMAL MORPHOLOGY (NORM); RBC MORPHOLOGY COMMENT NORMAL MORPHOLOGY (NORM); SERUM ALBUMIN 3.1 g/dL (3.5-4.8); WBC MORPHOLOGY COMMENT NORMAL MORPHOLOGY (NORM)
[2016-07-07] MEDS: HEPARIN 5000 UNIT/1 ML SUBCUT SCH ×3 (06:51→22:35)
[2016-07-07] MEDS: FLUTICASONE PROPIONATE 16 GRAM (120 SPRAYS / BOTTLE) ENOS SCH ×2 (09:18→20:43)
[2016-07-07] MEDS: ONDANSETRON 4 MG/2 ML VIAL IVP PRN (09:18)
[2016-07-07] MEDS: LORATADINE 10 MG TABLET PO SCH (09:18)
[2016-07-07] MEDS: BENZONATATE 200 MG CAPSULE PO SCH ×3 (09:19→20:43)
--- NOTE | 2016-07-07 09:44 | PDOC ---
History and Physical - History of Present Illness History of Present Illness: This is a very nice 46-year-old female who was diagnosed with diverticulitis on June 20 she was put on Cipro and Flagyl from the ER. Last evening around 6 PM started having some left quadrant pain similar to the pains that she had 2 weeks ago she admits of having chills but no sweats some nausea no vomiting. She is continuing to eat [employer], [employer], and other restaurant food she did receive a dose of IV Invanz last night at 10. CT scan shows no acute findings labs were reviewed with no white count patient still having left lower quadrant pain. Denies chest pain shortness of breath has not had a bowel movement since she came in the hospital Past Medical History Medical History: Depression, bipolar, ADD Surgical History: LEFT ARM, BILATERAL KNEE SCOPE, CHOLECYSTECTOMY, TUBAL LIGATION Tobacco Use: Current Every Day Smoker Substance Use Type: None, Methamphetamines Medication / Allergies Home Medications: Home Medications Medication Instructions Recorded Confirmed Type Trazodone HCl 2 tab PO DAILY tab 01/04/16 07/06/16 History Albuterol Sulfate [Proair Hfa] 1 - 2 puff INH Q4-6H #1 inhaler 07/01/16 Clinic Benzonatate 200 mg PO TID #30 cap 07/01/16 07/06/16 Clinic Cefdinir 600 mg PO DAILY #20 cap 07/01/16 07/06/16 Clinic Cetirizine HCl [Zyrtec] 10 mg PO DAILY #90 tab 07/01/16 07/06/16 Clinic Fluticasone Propionate [Flonase 9.9 ml TATI BID #1 bottle 07/01/16 07/06/16 Clinic Allergy Relief] Guaifenesin/Codeine Phos 5 ml PO Q6H #120 ml 07/01/16 07/06/16 Clinic [Cheratussin Ac Syrup] Levothyroxine Sodium 1 tab PO QHS #30 tab 07/02/16 07/06/16 Clinic Allergies/Adverse Reactions: Allergies Allergy/AdvReac Type Severity Reaction Status Date / Time No Known Drug Allergies Allergy NOT Verified 07/07/16 06:17 APPLICABLE paint Allergy HIVES Uncoded 07/07/16 06:17 Review of Systems - Review of Systems All Systems: Reviewed & No Additional Complaints Except as Stated - Respiratory Respiratory: DENIES: Negative System Review, Cough, Sputum, Dyspnea At Rest, Dyspnea with Exertion, Pleuritic Pain, Hemoptysis, Wheezing, Other, See HPI - Cardiovascular Cardiovascular: DENIES: Negative System Review, Chest Pain, Edema, Syncope, Palpitations, Orthopnea, Paroxysmal Nocturnal Dyspnea, Other, See HPI - Gastrointestinal Gastrointestinal / Abdominal: REPORTS: Nausea, Abdominal Pain. DENIES: Vomiting - Genitourinary Genitourinary: DENIES: Negative System Review, Pain, Burning, Hematuria, Incontinence, Urgency, Hesitant Stream, Decreased Stream, Nocutria, Discharge, Sexual Dyfunction, Other, See HPI - Musculoskeletal Musculoskeletal: DENIES: Negative System Review, Back Pain, Neck Pain, Swelling , Calf Pain, Muscle Pain, Cramping, Joint Pain - Hands, Joint Pain - Elbows, Joint Pain - Shoulders, Joint Pain - Hips, Joint Pain - Knees, Joint Pain - Feet , AM Stiffness, Other, See HPI - Neurological Neurologic: DENIES: Negative System Review, Headache, Numbness/Paresthesia, Tremors, Weakness, Seizures, Head Trauma, LOC, Dizziness, Confusion, Memory Loss , Difficulty Walking, Incoordination, Other, See HPI - Psychiatric Psychiatric: DENIES: Anhedonia, Anxiety, Depressed, Hopelessness, Hospitalization, Negative System Review, Other, Panic, Sadness, See HPI, Suicidality, Tearfullness Exam - Vitals Vital Signs: Vital Signs Temperature 97.4 F Temperature Source Temporal Artery Scan Pulse Rate [Pulse Oximeter] 76 Pulse Rate 69 Respiratory Rate 16 Blood Pressure [Left Arm] 103/55 Blood Pressure 109/69 Pulse Ox 91 Oxygen Flow Rate 3 Oxygen Delivery Method Room Air Height 5 ft 8 in Weight 113.58 kg - General General Appearance: POSITIVE: No Acute Distress, Cooperative, Mild Distress - Head Head Exam: POSITIVE: Normal Inspection, Normocephalic, Atraumatic - Eye Eye Exam: POSITIVE: Normal Appearance, PERRL, EOMI, No Scleral Icterus - Neck Neck Exam: POSITIVE: Normal Inspection, No Tenderness - Respiratory Respiratory Exam: POSITIVE: Clear to Auscultation - Bilaterally, Breathing Non Labored, Normal To Percussion - Cardiovascular Cardiovascular Exam: POSITIVE: RRR, No Murmur, No Clicks, No Gallops, No Rubs, PMI Non-Displaced - GI/Abdominal GI/Abdominal Exam: POSITIVE: Normal Bowel Sounds Additional GI/Abdominal Exam Details: Left lower quadrant pain with occasional guarding is at times otherwise rest of her belly is soft - Extremities Extremities Exam: POSITIVE: No Clubbing Present, No Edema Present, No Cyanosis Present - Neurological Neurological Exam: POSITIVE: Alert, Oriented x 3, CN II-XII Intact, No Facial Droop - Psychiatric Psychiatric Exam: POSITIVE: Normal Affect Results - Labs CBC and BMP: 07/07/16 06:00 07/07/16 06:00 Labs - Last 24 Hours: Laboratory Results 07/07/16 Range/Units 06:00 WBC 7.22 (4.8-10.8) 10^3/uL RBC 3.81 L (4.20-5.40) 10^6/uL Hgb 12.1 (12.0-16.0) g/dL Hct 36.3 L (37.0-47.0) % MCV 95.3 (81-99) FL MCH 31.8 H (27-31) PG MCHC 33.3 (33-37) g/dL RDW Std Deviation 44.0 (39-50) fL RDW Coeff of Lexus 13.1 (11.5-14.5) % Plt Count 213 (140-350) 10*3/uL MPV 9.9 (7.4-12.2) FL Immature Gran % (Auto) 0.1 (0-5) % Neut % (Auto) 58.3 (50-80) % Lymph % (Auto) 32.1 (10-50) % [place] % (Auto) 6.5 (5-15) % Eos % (Auto) 2.4 (0-8) % Baso % (Auto) 0.6 (0-1) % Immature Gran # (Auto) 0.01 10*3/UL Neut # (Auto) 4.21 10*3/UL Lymph # (Auto) 2.32 10*3/uL [place] # (Auto) 0.47 (0.3-0.8) 10*3/UL Eos # (Auto) 0.17 10*3/UL Baso # (Auto) 0.04 10*3/UL WBC Morphology Comment Normal morphology (NORM) Plt Morphology Comment Normal morphology (NORM) RBC Morph Comment Normal morphology (NORM) Sodium 140 (135-145) meq/L Potassium 3.8 (3.8-5.2) meq/L Chloride 108 (98-112) meq/L Carbon Dioxide 24 (23-33) meq/L Anion Gap 8 (5-20) BUN 8 (7-22) mg/dL Creatinine 0.7 (0.50-1.20) mg/dL Estimated GFR > 60 (>60 ml/min/1.73m(2)) BUN/Creatinine Ratio 11.42 (6-20) Glucose 94 (78-110) mg/dL Calculated Osmolality 287.0 (267-292) mOsm/kg Lactic Acid < 0.5 L (0.70-2.10) MMOL/L Calcium 7.9 L (8.7-10.7) mg/dL Total Bilirubin 0.7 (0.3-1.2) mg/dL AST 22 (8-39) IU/L ALT 28 (9-52) IU/L Alkaline Phosphatase 62 (38-126) IU/L Total Protein 5.8 L (6.1-8.0) g/dL Albumin 3.1 L (3.5-4.8) g/dL Globulin 2.7 (2.50-4.10) g/dL Albumin/Globulin Ratio 1.10 L (1.3-2.0) mg/g Amylase 44 (30-110) U/L Lipase 43 (23-300) IU/L Assessment and Plan - Patient Problems (1) Diverticulitis Current Visit: Yes Status: Acute Comment: Continue IV antibiotics general surgery Dr. Gil Ibarra will see the patient later today she understands and agrees discussed with nursing Photo / Body Diagrams - Uploaded Photos Uploaded Photos:
--- NOTE | 2016-07-07 15:07 | CONSULT ---
Consult Note - Consult Consult Date: 07/07/16 Reason for Consult: PreOp Consulation : General Surgery Requesting Physician: Dr. Molina and Dr. Singleton's Primary Care Provider: Steven Marroquin MD - History of Present Illness History of Present Illness: Patient is a 46-year-old female I am asked to see in consultation for acute diverticulitis. Patient was seen in the ER on June 19 and diagnosed with acute diverticulitis. She was given 10 days of oral Flagyl and Cipro. Patient states she finished her antibiotics. At the end of finishing the antibiotics she was having no abdominal pain. She did not have any follow-up with her physician after her last bout of diverticulitis. She did fine until yesterday. 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 She reports it's identical to the last episode. She had chills without fever. She had nausea without vomiting. She had loose stool but reports it's always loose and she is post cholecystectomy. She presented to the emergency room. White count was normal. She was afebrile. CT scan was done which was originally read as normal but on review it obviously has acute diverticulitis. She was admitted to the hospital I'm asked to see her today for consultation. It is unclear whether she has recurrent or incompletely treated diverticulitis. She is not feeling much better today. She is tolerating clear liquids. She remains afebrile. Patient has never had a colonoscopy. She has never had about a diverticulitis before this month. Review of Systems - Gastrointestinal Gastrointestinal / Abdominal: REPORTS: Nausea, Diarrhea, Abdominal Pain, See HPI Past Medical History Medical History: Depression, bipolar, ADD, asthma, current upper respiratory infection, diverticulitis, chronic back pain, hypothyroid. 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.) Alcohol Use: None (At this time.) Medication / Allergies Home Medications: Home Medications Medication Instructions Recorded Confirmed Type Trazodone HCl 2 tab PO DAILY tab 01/04/16 07/06/16 History Albuterol Sulfate [Proair Hfa] 1 - 2 puff INH Q4-6H #1 inhaler 07/01/16 [facility] Benzonatate 200 mg PO TID #30 cap 07/01/16 07/06/16 Clinic Cefdinir 600 mg PO DAILY #20 cap 07/01/16 07/06/16 [facility] Cetirizine HCl [Zyrtec] 10 mg PO DAILY #90 tab 07/01/16 07/06/16 [facility] Fluticasone Propionate [Flonase 9.9 ml TATI BID #1 bottle 07/01/16 07/06/16 Clinic Allergy Relief] Guaifenesin/Codeine Phos 5 ml PO Q6H #120 ml 07/01/16 07/06/16 Clinic [Cheratussin Ac Syrup] Levothyroxine Sodium 1 tab PO QHS #30 tab 07/02/16 07/06/16 [facility] Allergies/Adverse Reactions: Allergies Allergy/AdvReac Type Severity Reaction Status Date / Time No Known Drug Allergies Allergy NOT Verified 07/07/16 06:17 APPLICABLE paint Allergy HIVES Uncoded 07/07/16 06:17 Exam - Vitals Vital Signs: Vital Signs Temperature 97.0 F Temperature Source Temporal Artery Scan Pulse Rate [Pulse Oximeter] 77 Pulse Rate 69 Respiratory Rate 16 Blood Pressure [Left Arm] 91/41 Blood Pressure 109/69 Pulse Ox 93 Oxygen Flow Rate 3 Oxygen Delivery Method Room Air Height 5 ft 8 in Weight 113.58 kg - General General Appearance: POSITIVE: No Acute Distress, Cooperative - Respiratory Respiratory Exam: POSITIVE: Clear to Auscultation - Bilaterally, Breathing Non Labored - Cardiovascular Cardiovascular Exam: POSITIVE: No Murmur - GI/Abdominal GI/Abdominal Exam: POSITIVE: Non Distended, Soft, Guarding (Left lower quadrant) , Diminished Bowel Sounds Additional GI/Abdominal Exam Details: Focal left lower quadrant tenderness with guarding and mild rebound. Referred pain to the left lower quadrant with palpation elsewhere. - Rectal Rectal Exam: POSITIVE: Deferred - Neurological Neurological Exam: POSITIVE: Alert, Oriented x 3 - Psychiatric Psychiatric Exam: POSITIVE: Normal Affect, Normal Mood Results - Labs CBC and BMP: 07/07/16 06:00 07/07/16 06:00 Labs - Last 24 Hours: Laboratory Results 07/07/16 Range/Units 06:00 WBC 7.22 (4.8-10.8) 10^3/uL RBC 3.81 L (4.20-5.40) 10^6/uL Hgb 12.1 (12.0-16.0) g/dL Hct 36.3 L (37.0-47.0) % MCV 95.3 (81-99) FL MCH 31.8 H (27-31) PG MCHC 33.3 (33-37) g/dL RDW Std Deviation 44.0 (39-50) fL RDW Coeff of Lexus 13.1 (11.5-14.5) % Plt Count 213 (140-350) 10*3/uL MPV 9.9 (7.4-12.2) FL Immature Gran % (Auto) 0.1 (0-5) % Neut % (Auto) 58.3 (50-80) % Lymph % (Auto) 32.1 (10-50) % [place] % (Auto) 6.5 (5-15) % Eos % (Auto) 2.4 (0-8) % Baso % (Auto) 0.6 (0-1) % Immature Gran # (Auto) 0.01 10*3/UL Neut # (Auto) 4.21 10*3/UL Lymph # (Auto) 2.32 10*3/uL [place] # (Auto) 0.47 (0.3-0.8) 10*3/UL Eos # (Auto) 0.17 10*3/UL Baso # (Auto) 0.04 10*3/UL WBC Morphology Comment Normal morphology (NORM) Plt Morphology Comment Normal morphology (NORM) RBC Morph Comment Normal morphology (NORM) Sodium 140 (135-145) meq/L Potassium 3.8 (3.8-5.2) meq/L Chloride 108 (98-112) meq/L Carbon Dioxide 24 (23-33) meq/L Anion Gap 8 (5-20) BUN 8 (7-22) mg/dL Creatinine 0.7 (0.50-1.20) mg/dL Estimated GFR > 60 (>60 ml/min/1.73m(2)) BUN/Creatinine Ratio 11.42 (6-20) Glucose 94 (78-110) mg/dL Calculated Osmolality 287.0 (267-292) mOsm/kg Lactic Acid < 0.5 L (0.70-2.10) MMOL/L Calcium 7.9 L (8.7-10.7) mg/dL Total Bilirubin 0.7 (0.3-1.2) mg/dL AST 22 (8-39) IU/L ALT 28 (9-52) IU/L Alkaline Phosphatase 62 (38-126) IU/L Total Protein 5.8 L (6.1-8.0) g/dL Albumin 3.1 L (3.5-4.8) g/dL Globulin 2.7 (2.50-4.10) g/dL Albumin/Globulin Ratio 1.10 L (1.3-2.0) mg/g Amylase 44 (30-110) U/L Lipase 43 (23-300) IU/L - Imaging Status: Image Reviewed by Me, Report Reviewed by Me (Addendum pending. Patient has acute diverticulitis with focal stranding around the sigmoid colon. No free air, no free fluid, no abscess.) Assessment and Plan - Patient Problems (1) Acute diverticulitis Current Visit: Yes Status: Acute Priority: High Diagnosis Date: 07/06/16 Comment: It is unclear whether this is incompletely treated or recurrent diverticulitis. At any rate would recommend a minimum of 3 doses of IV inpatient Invanz. As long as she is improving the options would be to discharge her home for an additional 10 days of outpatient IV Invanz OR to discharge her home on an additional 2 weeks of oral Cipro and Flagyl. The latter would probably be my choice as long as she is doing well. She should see me in the office prior to completing her antibiotics but near the end of her antibiotic therapy. We can then determine whether she needs ongoing antibiotics or if it's reasonable to stop them. Patient will need a colonoscopy but typically would do that 6-8 weeks after her bout of acute diverticulitis. I will be available as needed but I will not plan to see the patient again this hospitalization unless asked to do so. We will plan my next visit with the patient in approximately 10 days. I have discussed all the above with the patient and the hospitalist. We'll proceed as outlined.
[2016-07-07] MEDS: HYDROcodone-APAP 7.5 MG-325 MG TABLET PO PRN ×2 (17:09→23:57)
[2016-07-07] MEDS: MORPHINE SULFATE 2 MG/1 ML IVP PRN ×2 (17:10→19:36)
[2016-07-07] MEDS: LEVOTHYROXINE 50 MCG TABLET PO SCH (20:43)
[2016-07-07] MEDS: Ertapenem Inj 1 GM in Sodium Chloride 0.9% 100 ML IV SCH (22:32)
[2016-07-07] MEDS ORDERED: Ertapenem Inj 1 GM in Sodium Chloride 0.9% 100 ML IV SCH (22:45)
[2016-07-07] MEDS ORDERED: NICOTINE 21 MG /DAY PATCH TRANSDERM SCH (23:11)
[2016-07-08] MEDS: MORPHINE SULFATE 2 MG/1 ML IVP PRN (00:19)
[2016-07-08] MEDS: GUAIFENESIN/CODEINE SYRUP 100 MG/ 10 MG/ 5 ML UD CUP PO PRN ×2 (00:41→17:31)
[2016-07-08] MEDS: ALBUTEROL SULFATE 8.5 GM HFA INHALER INH SCH ×6 (03:52→23:10)
[2016-07-08] MEDS: HYDROcodone-APAP 7.5 MG-325 MG TABLET PO PRN ×4 (03:56→20:58)
[2016-07-08 04:41] LABS: BASOPHILS # (AUTO) 0.03 10*3/UL; BASOPHILS % (AUTO) 0.6 % (0-1); EOSINOPHILS # (AUTO) 0.18 10*3/UL; EOSINOPHILS % (AUTO) 3.4 % (0-8); HEMATOCRIT 37.6 % (37.0-47.0); HEMOGLOBIN 12.3 g/dL (12.0-16.0); LYMPHOCYTES # (AUTO) 2.38 10*3/uL; MEAN CORPUSCULAR HEMOGLOBIN 31.2 PG (27-31); MEAN CORPUSCULAR HGB CONC 32.7 g/dL (33-37); MEAN CORPUSCULAR VOLUME 95.4 FL (81-99); MONOCYTES # (AUTO) 0.33 10*3/UL (0.3-0.8); MONOCYTES % (AUTO) 6.3 % (5-15); NEUTROPHILS # (AUTO) 2.31 10*3/UL; NEUTROPHILS % (AUTO) 44.1 % (50-80); RED BLOOD COUNT 3.94 10^6/uL (4.20-5.40)
[2016-07-08 05:00] LABS: BLOOD UREA NITROGEN 4 mg/dL (7-22); BUN/CREATININE RATIO 5.71 (6-20); CALCIUM 8.2 mg/dL (8.7-10.7); EST GLOMERULAR FILTRATION > 60 (>60 ml/min/1.73m(2))
[2016-07-08 05:10] LABS: PLATELET MORPHOLOGY COMMENT NORMAL MORPHOLOGY (NORM); RBC MORPHOLOGY COMMENT NORMAL MORPHOLOGY (NORM); WBC MORPHOLOGY COMMENT NORMAL MORPHOLOGY (NORM)
[2016-07-08] MEDS: HEPARIN 5000 UNIT/1 ML SUBCUT SCH ×2 (07:01→14:51)
[2016-07-08] MEDS: LORATADINE 10 MG TABLET PO SCH (08:24)
[2016-07-08] MEDS: NICOTINE 21 MG /DAY PATCH TRANSDERM SCH ×2 (08:24→17:54)
[2016-07-08] MEDS: FLUTICASONE PROPIONATE 16 GRAM (120 SPRAYS / BOTTLE) ENOS SCH ×2 (08:25→21:00)
[2016-07-08] MEDS: BENZONATATE 200 MG CAPSULE PO SCH ×3 (08:43→20:59)
[2016-07-08] MEDS: KETOROLAC 15 MG/1 ML VIAL IVP PRN ×2 (11:13→17:31)
[2016-07-08] MEDS: ONDANSETRON 4 MG/2 ML VIAL IVP PRN (11:13)
[2016-07-08] MEDS: NORMAL SALINE 10 ML SYRINGE FLUSH IVP PRN ×2 (11:14→17:31)
--- NOTE | 2016-07-08 11:27 | PDOC(PROG) ---
Interval History: Patient still has left lower quadrant pain. Also has a headache today. No diarrhea no chest pain but has some nausea Objective : Data - Labs CBC and BMP: 07/08/16 04:20 07/08/16 04:20 Labs - Last 24 Hours: Laboratory Results 07/08/16 Range/Units 04:20 WBC 5.24 (4.8-10.8) 10^3/uL RBC 3.94 L (4.20-5.40) 10^6/uL Hgb 12.3 (12.0-16.0) g/dL Hct 37.6 (37.0-47.0) % MCV 95.4 (81-99) FL MCH 31.2 H (27-31) PG MCHC 32.7 L (33-37) g/dL RDW Std Deviation 44.0 (39-50) fL RDW Coeff of [place] 13.0 (11.5-14.5) % Plt Count 211 (140-350) 10*3/uL MPV 10.0 (7.4-12.2) FL Immature Gran % (Auto) 0.2 (0-5) % Neut % (Auto) 44.1 L (50-80) % Lymph % (Auto) 45.4 (10-50) % [place] % (Auto) 6.3 (5-15) % Eos % (Auto) 3.4 (0-8) % Baso % (Auto) 0.6 (0-1) % Immature Gran # (Auto) 0.01 10*3/UL Neut # (Auto) 2.31 10*3/UL Lymph # (Auto) 2.38 10*3/uL [place] # (Auto) 0.33 (0.3-0.8) 10*3/UL Eos # (Auto) 0.18 10*3/UL Baso # (Auto) 0.03 10*3/UL WBC Morphology Comment Normal morphology (NORM) Plt Morphology Comment Normal morphology (NORM) RBC Morph Comment Normal morphology (NORM) Sodium 140 (135-145) meq/L Potassium 4.1 (3.8-5.2) meq/L Chloride 109 (98-112) meq/L Carbon Dioxide 25 (23-33) meq/L Anion Gap 6 (5-20) BUN 4 L (7-22) mg/dL Creatinine 0.7 (0.50-1.20) mg/dL Estimated GFR > 60 (>60 ml/min/1.73m(2)) BUN/Creatinine Ratio 5.71 L (6-20) Glucose 89 (78-110) mg/dL Calculated Osmolality 285.0 (267-292) mOsm/kg Calcium 8.2 L (8.7-10.7) mg/dL Objective : Exam - General General Appearance: Cooperative - Respiratory Respiratory Exam: Clear to Auscultation - Bilaterally, Breathing Non Labored, Normal To Percussion Additional Respiratory Exam Details: Left lower quadrant pain - Cardiovascular Cardiovascular Exam: RRR, No Murmur, No Clicks - GI/Abdominal Additional GI/Abdominal Exam Details: Left lower quadrant pain - Neurological Neurological Exam: Alert, Oriented x 3 Assessment and Plan - Patient Problems (1) Diverticulitis Current Visit: Yes Status: Acute - Assessment / Plan Additional Assessment/Plan Details: #1 recurrent diverticulitispatient was treated as an outpatient for 2 weeks she failed comes back in with the left lower quadrant pain I discussed the case with Dr. Dr. Ibarra at this time he recommends IV antibiotics for a longer period of time also he started some morphine which I believe is given her to headache I will stop the morphine and treated with Toradol and I believe is also causing her to be nauseated. Continue Invanz patient will need to be made inpatient since she is still in pain and needs IV antibiotics and not keeping food down Photo / Body Diagrams - Uploaded Photos Uploaded Photos:
[2016-07-08] MEDS: traZODone Tab 50 MG TAB PO SCH (20:58)
[2016-07-08] MEDS: LEVOTHYROXINE 50 MCG TABLET PO SCH (20:59)
[2016-07-09] MEDS: Ertapenem Inj 1 GM in Sodium Chloride 0.9% 100 ML IV SCH ×2 (00:04→23:23)
[2016-07-09] MEDS: HEPARIN 5000 UNIT/1 ML SUBCUT SCH ×4 (00:05→23:24)
[2016-07-09] MEDS: ONDANSETRON 4 MG/2 ML VIAL IVP PRN (02:08)
[2016-07-09] MEDS: KETOROLAC 15 MG/1 ML VIAL IVP PRN (02:11)
[2016-07-09] MEDS: ALBUTEROL SULFATE 8.5 GM HFA INHALER INH SCH ×5 (03:45→18:52)
[2016-07-09] MEDS: HYDROcodone-APAP 7.5 MG-325 MG TABLET PO PRN ×5 (07:22→23:24)
[2016-07-09] MEDS: GUAIFENESIN/CODEINE SYRUP 100 MG/ 10 MG/ 5 ML UD CUP PO PRN ×2 (07:23→20:13)
[2016-07-09] MEDS: NICOTINE 21 MG /DAY PATCH TRANSDERM SCH (08:29)
[2016-07-09] MEDS: FLUTICASONE PROPIONATE 16 GRAM (120 SPRAYS / BOTTLE) ENOS SCH ×2 (08:30→20:13)
[2016-07-09] MEDS: LORATADINE 10 MG TABLET PO SCH (08:30)
[2016-07-09] MEDS: BENZONATATE 200 MG CAPSULE PO SCH ×3 (08:31→20:13)
[2016-07-09] MEDS: NICOTINE 4 MG GUM BUCCAL PRN ×2 (15:56→20:14)
[2016-07-09] MEDS: LEVOTHYROXINE 50 MCG TABLET PO SCH (20:13)
[2016-07-09] MEDS: traZODone Tab 50 MG TAB PO SCH (20:13)
--- NOTE | 2016-07-09 22:56 | PDOC(PROG) ---
Date and Time of Service: 07/08/2016, 12:30 Interval History: No chest pain, no SOB, no vomiting. Does complain of nausea and some stomach upset eating today. Still has an appetite. Objective : Data - Labs CBC and BMP: 07/08/16 04:20 07/08/16 04:20 Labs - Last 24 Hours: Laboratory Results 07/06/16 07/06/16 07/06/16 Range/Units 19:20 19:27 20:18 WBC 8.57 (4.8-10.8) 10^3/uL RBC 4.59 (4.20-5.40) 10^6/uL Hgb 14.7 (12.0-16.0) g/dL Hct 42.9 (37.0-47.0) % MCV 93.5 (81-99) FL MCH 32.0 H (27-31) PG MCHC 34.3 (33-37) g/dL RDW Std Deviation 44.6 (39-50) fL RDW Coeff of [place] 13.3 (11.5-14.5) % Plt Count 256 (140-350) 10*3/uL MPV 9.7 (7.4-12.2) FL Immature Gran % (Auto) 0.1 (0-5) % Neut % (Auto) 69.3 (50-80) % Lymph % (Auto) 22.1 (10-50) % [place] % (Auto) 5.8 (5-15) % Eos % (Auto) 1.9 (0-8) % Baso % (Auto) 0.8 (0-1) % Immature Gran # (Auto) 0.01 10*3/UL Neut # (Auto) 5.94 10*3/UL Lymph # (Auto) 1.89 10*3/uL [place] # (Auto) 0.50 (0.3-0.8) 10*3/UL Eos # (Auto) 0.16 10*3/UL Baso # (Auto) 0.07 10*3/UL WBC Morphology Comment Normal morphology (NORM) Plt Morphology Comment Normal morphology (NORM) RBC Morph Comment Normal morphology (NORM) VBG pH 7.44 H (7.32-7.42) VBG pCO2 31 L (45-55) mmHg VBG HCO3 21 L (22-26) mmol/L VBG Base Excess -3 L (-2-2) MMOL/L Sodium 139 (135-145) meq/L Potassium 3.5 L (3.8-5.2) meq/L Chloride 103 (98-112) meq/L Carbon Dioxide 27 (23-33) meq/L Anion Gap 9 (5-20) BUN 11 (7-22) mg/dL Creatinine 0.8 (0.50-1.20) mg/dL Estimated GFR > 60 (>60 ml/min/1.73m(2)) BUN/Creatinine Ratio 13.75 (6-20) Glucose 106 (78-110) mg/dL Calculated Osmolality 286.0 (267-292) mOsm/kg Lactic Acid 1.2 (0.70-2.10) MMOL/L Calcium 9.0 (8.7-10.7) mg/dL Magnesium 1.7 (1.6-2.4) mg/dL Total Bilirubin 1.1 (0.3-1.2) mg/dL AST 23 (8-39) IU/L ALT 33 (9-52) IU/L Alkaline Phosphatase 74 (38-126) IU/L C-Reactive Protein 2.1 H (0.0-0.9) mg/dL Total Protein 7.4 (6.1-8.0) g/dL Albumin 4.1 (3.5-4.8) g/dL Globulin 3.3 (2.50-4.10) g/dL Albumin/Globulin Ratio 1.20 L (1.3-2.0) mg/g Amylase (30-110) U/L Lipase (23-300) IU/L Ur Collection Type Clean catch urine Urine Color Yellow Urine Clarity Clear (CLEAR) Urine pH 7.0 (5.0-8.5) Ur Specific [place] 1.034 (1.005-1.030) Urine Protein Negative (NEG) mg/dl Urine Glucose (UA) Negative (NEG) mg/dL Urine Ketones Negative (NEG) Urine Occult Blood Small H (NEG) Urine Nitrate Negative (NEG) Urine Bilirubin Negative (NEG) Urine Urobilinogen 0.2 (0.2) EU/dL Ur Leukocyte Esterase Negative (NEG) Urine RBC 1-3 (NONE) /hpf Urine WBC 0-1 (NONE) Ur Squamous Epith Cells Moderate (NONE) Ur Renal Epithelial Cell None (NONE) Urine Crystals None Urine Bacteria Rare (NONE) Urine Casts None (NONE) Urine Mucus None (NONE) Urine Trichomonas None (NONE) Urine Yeast None (NONE) Ur Culture Indicated? Culture not set 07/07/16 07/08/16 Range/Units 06:00 04:20 WBC 7.22 5.24 (4.8-10.8) 10^3/uL RBC 3.81 L 3.94 L (4.20-5.40) 10^6/uL Hgb 12.1 12.3 (12.0-16.0) g/dL Hct 36.3 L 37.6 (37.0-47.0) % MCV 95.3 95.4 (81-99) FL MCH 31.8 H 31.2 H (27-31) PG MCHC 33.3 32.7 L (33-37) g/dL RDW Std Deviation 44.0 44.0 (39-50) fL RDW Coeff of [place] 13.1 13.0 (11.5-14.5) % Plt Count 213 211 (140-350) 10*3/uL MPV 9.9 10.0 (7.4-12.2) FL Immature Gran % (Auto) 0.1 0.2 (0-5) % Neut % (Auto) 58.3 44.1 L (50-80) % Lymph % (Auto) 32.1 45.4 (10-50) % [place] % (Auto) 6.5 6.3 (5-15) % Eos % (Auto) 2.4 3.4 (0-8) % Baso % (Auto) 0.6 0.6 (0-1) % Immature Gran # (Auto) 0.01 0.01 10*3/UL Neut # (Auto) 4.21 2.31 10*3/UL Lymph # (Auto) 2.32 2.38 10*3/uL [place] # (Auto) 0.47 0.33 (0.3-0.8) 10*3/UL Eos # (Auto) 0.17 0.18 10*3/UL Baso # (Auto) 0.04 0.03 10*3/UL WBC Morphology Comment Normal morphology Normal morphology (NORM) Plt Morphology Comment Normal morphology Normal morphology (NORM) RBC Morph Comment Normal morphology Normal morphology (NORM) VBG pH (7.32-7.42) VBG pCO2 (45-55) mmHg VBG HCO3 (22-26) mmol/L VBG Base Excess (-2-2) MMOL/L Sodium 140 140 (135-145) meq/L Potassium 3.8 4.1 (3.8-5.2) meq/L Chloride 108 109 (98-112) meq/L Carbon Dioxide 24 25 (23-33) meq/L Anion Gap 8 6 (5-20) BUN 8 4 L (7-22) mg/dL Creatinine 0.7 0.7 (0.50-1.20) mg/dL Estimated GFR > 60 > 60 (>60 ml/min/1.73m(2)) BUN/Creatinine Ratio 11.42 5.71 L (6-20) Glucose 94 89 (78-110) mg/dL Calculated Osmolality 287.0 285.0 (267-292) mOsm/kg Lactic Acid < 0.5 L (0.70-2.10) MMOL/L Calcium 7.9 L 8.2 L (8.7-10.7) mg/dL Magnesium (1.6-2.4) mg/dL Total Bilirubin 0.7 (0.3-1.2) mg/dL AST 22 (8-39) IU/L ALT 28 (9-52) IU/L Alkaline Phosphatase 62 (38-126) IU/L C-Reactive Protein (0.0-0.9) mg/dL Total Protein 5.8 L (6.1-8.0) g/dL Albumin 3.1 L (3.5-4.8) g/dL Globulin 2.7 (2.50-4.10) g/dL Albumin/Globulin Ratio 1.10 L (1.3-2.0) mg/g Amylase 44 (30-110) U/L Lipase 43 (23-300) IU/L Ur Collection Type Urine Color Urine Clarity (CLEAR) Urine pH (5.0-8.5) Ur Specific [place] (1.005-1.030) Urine Protein (NEG) mg/dl Urine Glucose (UA) (NEG) mg/dL Urine Ketones (NEG) Urine Occult Blood (NEG) Urine Nitrate (NEG) Urine Bilirubin (NEG) Urine Urobilinogen (0.2) EU/dL Ur Leukocyte Esterase (NEG) Urine RBC (NONE) /hpf Urine WBC (NONE) Ur Squamous Epith Cells (NONE) Ur Renal Epithelial Cell (NONE) Urine Crystals Urine Bacteria (NONE) Urine Casts (NONE) Urine Mucus (NONE) Urine Trichomonas (NONE) Urine Yeast (NONE) Ur Culture Indicated? Objective : Exam - General General Appearance: No Acute Distress, Cooperative Additional General Exam Details: Vital Signs - Last Taken Temperature 98.2 F 07/09/16 20:56 Pulse Rate 66 07/09/16 20:56 Respiratory Rate 18 07/09/16 20:56 Blood Pressure 115/81 07/09/16 20:56 Pulse Ox 89 07/09/16 20:56 - Eye Eye Exam: No Scleral Icterus - Respiratory Respiratory Exam: Breathing Non Labored, Wheezes - Cardiovascular Cardiovascular Exam: RRR, No Murmur, No Clicks, No Gallops, No Rubs, No JVD - GI/Abdominal GI/Abdominal Exam: Normal Bowel Sounds, Non Distended, Soft Additional GI/Abdominal Exam Details: some tenderness in left lower quadrant - Extremities Extremities Exam: No Clubbing Present, No Edema Present, No Cyanosis Present - Neurological Neurological Exam: Alert, Oriented x 3, Normal Gait, No Facial Droop, Speech Intact / Clear, Moves All Extremities Equally - Psychiatric Psychiatric Exam: Normal Affect, Normal Mood Assessment and Plan - Patient Problems (1) Acute diverticulitis Current Visit: Yes Status: Acute Priority: High Diagnosis Date: 07/06/16 (2) Nausea Current Visit: Yes Status: Acute - Assessment / Plan Additional Assessment/Plan Details: for now, continue Invanz, day #2. I agree with Dr. Ibarra, difficult to tell if this is a new episode of acute diverticulitis or just not treated long enough continue diet and meds for pain control check CBC with diff in AM Photo / Body Diagrams - Uploaded Photos Uploaded Photos:
[2016-07-10] MEDS: ALBUTEROL SULFATE 8.5 GM HFA INHALER INH SCH ×5 (00:02→15:24)
[2016-07-10] MEDS: NICOTINE 4 MG GUM BUCCAL PRN ×2 (00:32→10:33)
[2016-07-10] MEDS: HYDROcodone-APAP 7.5 MG-325 MG TABLET PO PRN ×3 (03:32→15:18)
[2016-07-10] MEDS: ONDANSETRON 4 MG/2 ML VIAL IVP PRN (05:08)
[2016-07-10] MEDS: KETOROLAC 15 MG/1 ML VIAL IVP PRN (05:08)
[2016-07-10] MEDS: HEPARIN 5000 UNIT/1 ML SUBCUT SCH ×2 (08:36→15:19)
[2016-07-10] MEDS: GUAIFENESIN/CODEINE SYRUP 100 MG/ 10 MG/ 5 ML UD CUP PO PRN (10:31)
[2016-07-10] MEDS: LORATADINE 10 MG TABLET PO SCH (10:31)
[2016-07-10] MEDS: BENZONATATE 200 MG CAPSULE PO SCH ×2 (10:31→15:20)
[2016-07-10] MEDS: FLUTICASONE PROPIONATE 16 GRAM (120 SPRAYS / BOTTLE) ENOS SCH (10:31)
[2016-07-10] MEDS: NICOTINE 21 MG /DAY PATCH TRANSDERM SCH (10:32)
--- NOTE | 2016-07-10 13:36 | DCSUMMARY ---
Hospitalization Summary Admit Date: 07/07/16 Discharge Date: 07/10/16 Primary Diagnosis:: diverticulitis Hospital Course: This a 46-year-old female that was admitted with continued abdominal pain, nausea and his comfort from a recent bout of acute diverticulitis. It appears that she was failing outpatient antibiotics that she had nausea and vomiting and abdominal pain return. She was admitted, surgery was consulted, and the patient was placed on IV fluids and Invanz therapy. Over the last 3 days symptoms have improved and it was recommended continuing outpatient regimen for a total of 10-14 days with follow-up prior to discontinuation of antibiotics. I have written prescriptions for the next 10 days for by mouth therapy after 3 days of IV therapy, and we will schedule surgical follow-up. The patient got to a point where she could eat a regular diet, had nausea but no vomiting, and her abdominal pain was significantly reduced. The only other issue during the hospital stay in terms of the patient's chronic medical issues was that she had wanted to go back on her Depo-Provera. Her transcription coordinator has recommended against that during her bout of diverticulitis and I agree with that. The patient is been on this hormone therapy for over 20 years now to control periods and to essentially eliminate them due to her significant dysmenorrhea and pelvic pain. We will get an ultrasound to look at the uterus in more detail. Perhaps the fibroid may be at work here and may be causing some of the issues with constipation and/or diverticular disease. Today, no completes of chest pain, shortness breath, or vomiting. Nausea is improved. Abdominal pain improved. Assessment and Plan: 1. As per discharge assessments noted 2. Disposition: Patient is discharged home. 3. Condition on discharge, stable and improved. 4. Diet: regular diet 5. Activities: resume normal activities, return to work next Thursday 6. Follow-Up: 1. Primary care provider one week 2. See Dr. Ibarra in 1 week to review diverticular disease and determine timing of colonoscopy and any lengthening of antibiotic therapy. 7. Medications at the Time of Discharge: Home Medications Medication Instructions Recorded Confirmed Type Trazodone HCl 2 tab PO DAILY tab 01/04/16 07/06/16 History Albuterol Sulfate [Proair Hfa] 1 - 2 puff INH Q4-6H #1 inhaler 05/16/17 05/21/ 17 Clinic Cetirizine HCl [Zyrtec] 10 mg PO DAILY #90 tab 07/01/16 07/06/16 Clinic Fluticasone Propionate [Flonase 9.9 ml TATI BID #1 bottle 07/01/16 07/06/16 Clinic Allergy Relief] Levothyroxine Sodium 1 tab PO QHS #30 tab 07/02/16 07/06/16 Clinic Hydrocodone/Acetaminophen [[place] 1 each PO Q6H PRN #20 tablet 07/10/16 Rx 5-325 Tablet] Levofloxacin [Levaquin] 500 mg PO DAILY #10 tablet 07/10/16 Rx metroNIDAZOLE Tab [Flagyl Tab] 500 mg PO TID #24 tab 07/10/16 Rx 8. Time, care, counseling and coordination of care for this discharge is greater than 30 minutes. Exam - Vitals Vital Signs: Vital Signs Temperature 97.6 F Temperature Source Temporal Artery Scan Pulse Rate [Pulse Oximeter] 88 Respiratory Rate 18 Blood Pressure [Right Arm] 107/67 Blood Pressure [Left Arm] 92/52 Pulse Ox 89 Oxygen Flow Rate 2 Oxygen Delivery Method Room Air Weight 249 lb 12.8 oz - General General Appearance: POSITIVE: No Acute Distress, Cooperative Additional General Exam Details: Note on review of the patient's blood pressures during the hospital stay that she does run a low normal blood pressure. - Eye Eye Exam: POSITIVE: No Scleral Icterus - ENT ENT Exam: POSITIVE: Mucous Membranes Moist - Respiratory Respiratory Exam: POSITIVE: Clear to Auscultation - Bilaterally, Breathing Non Labored - Cardiovascular Cardiovascular Exam: POSITIVE: RRR, No Murmur, No Clicks, No Gallops, No Rubs, No JVD Additional Cardiovascular Details: No presyncopal symptoms from low normal blood pressures. - GI/Abdominal GI/Abdominal Exam: POSITIVE: Normal Bowel Sounds, Non Tender, Non Distended, Soft - Extremities Extremities Exam: POSITIVE: No Clubbing Present, No Edema Present, No Cyanosis Present - Neurological Neurological Exam: POSITIVE: Alert, Oriented x 3, No Facial Droop, Speech Intact / Clear, Moves All Extremities Equally - Psychiatric Psychiatric Exam: POSITIVE: Normal Affect, Normal Mood Data Procedures: Laboratory Results 07/06/16 07/06/16 07/06/16 Range/Units 19:20 19:27 20:18 WBC 8.57 (4.8-10.8) 10^3/uL RBC 4.59 (4.20-5.40) 10^6/uL Hgb 14.7 (12.0-16.0) g/dL Hct 42.9 (37.0-47.0) % MCV 93.5 (81-99) FL MCH 32.0 H (27-31) PG MCHC 34.3 (33-37) g/dL RDW Std Deviation 44.6 (39-50) fL RDW Coeff of [place] 13.3 (11.5-14.5) % Plt Count 256 (140-350) 10*3/uL MPV 9.7 (7.4-12.2) FL Immature Gran % (Auto) 0.1 (0-5) % Neut % (Auto) 69.3 (50-80) % Lymph % (Auto) 22.1 (10-50) % [place] % (Auto) 5.8 (5-15) % Eos % (Auto) 1.9 (0-8) % Baso % (Auto) 0.8 (0-1) % Immature Gran # (Auto) 0.01 10*3/UL Neut # (Auto) 5.94 10*3/UL Lymph # (Auto) 1.89 10*3/uL [place] # (Auto) 0.50 (0.3-0.8) 10*3/UL Eos # (Auto) 0.16 10*3/UL Baso # (Auto) 0.07 10*3/UL WBC Morphology Comment Normal morphology (NORM) Plt Morphology Comment Normal morphology (NORM) RBC Morph Comment Normal morphology (NORM) VBG pH 7.44 H (7.32-7.42) VBG pCO2 31 L (45-55) mmHg VBG HCO3 21 L (22-26) mmol/L VBG Base Excess -3 L (-2-2) MMOL/L Sodium 139 (135-145) meq/L Potassium 3.5 L (3.8-5.2) meq/L Chloride 103 (98-112) meq/L Carbon Dioxide 27 (23-33) meq/L Anion Gap 9 (5-20) BUN 11 (7-22) mg/dL Creatinine 0.8 (0.50-1.20) mg/dL Estimated GFR > 60 (>60 ml/min/1.73m(2)) BUN/Creatinine Ratio 13.75 (6-20) Glucose 106 (78-110) mg/dL Calculated Osmolality 286.0 (267-292) mOsm/kg Lactic Acid 1.2 (0.70-2.10) MMOL/L Calcium 9.0 (8.7-10.7) mg/dL Magnesium 1.7 (1.6-2.4) mg/dL Total Bilirubin 1.1 (0.3-1.2) mg/dL AST 23 (8-39) IU/L ALT 33 (9-52) IU/L Alkaline Phosphatase 74 (38-126) IU/L C-Reactive Protein 2.1 H (0.0-0.9) mg/dL Total Protein 7.4 (6.1-8.0) g/dL Albumin 4.1 (3.5-4.8) g/dL Globulin 3.3 (2.50-4.10) g/dL Albumin/Globulin Ratio 1.20 L (1.3-2.0) mg/g Amylase (30-110) U/L Lipase (23-300) IU/L Ur Collection Type Clean catch urine Urine Color Yellow Urine Clarity Clear (CLEAR) Urine pH 7.0 (5.0-8.5) Ur Specific [place] 1.034 (1.005-1.030) Urine Protein Negative (NEG) mg/dl Urine Glucose (UA) Negative (NEG) mg/dL Urine Ketones Negative (NEG) Urine Occult Blood Small H (NEG) Urine Nitrate Negative (NEG) Urine Bilirubin Negative (NEG) Urine Urobilinogen 0.2 (0.2) EU/dL Ur Leukocyte Esterase Negative (NEG) Urine RBC 1-3 (NONE) /hpf Urine WBC 0-1 (NONE) Ur Squamous Epith Cells Moderate (NONE) Ur Renal Epithelial Cell None (NONE) Urine Crystals None Urine Bacteria Rare (NONE) Urine Casts None (NONE) Urine Mucus None (NONE) Urine Trichomonas None (NONE) Urine Yeast None (NONE) Ur Culture Indicated? Culture not set 07/07/16 07/08/16 Range/Units 06:00 04:20 WBC 7.22 5.24 (4.8-10.8) 10^3/uL RBC 3.81 L 3.94 L (4.20-5.40) 10^6/uL Hgb 12.1 12.3 (12.0-16.0) g/dL Hct 36.3 L 37.6 (37.0-47.0) % MCV 95.3 95.4 (81-99) FL MCH 31.8 H 31.2 H (27-31) PG MCHC 33.3 32.7 L (33-37) g/dL RDW Std Deviation 44.0 44.0 (39-50) fL RDW Coeff of [place] 13.1 13.0 (11.5-14.5) % Plt Count 213 211 (140-350) 10*3/uL MPV 9.9 10.0 (7.4-12.2) FL Immature Gran % (Auto) 0.1 0.2 (0-5) % Neut % (Auto) 58.3 44.1 L (50-80) % Lymph % (Auto) 32.1 45.4 (10-50) % [place] % (Auto) 6.5 6.3 (5-15) % Eos % (Auto) 2.4 3.4 (0-8) % Baso % (Auto) 0.6 0.6 (0-1) % Immature Gran # (Auto) 0.01 0.01 10*3/UL Neut # (Auto) 4.21 2.31 10*3/UL Lymph # (Auto) 2.32 2.38 10*3/uL [place] # (Auto) 0.47 0.33 (0.3-0.8) 10*3/UL Eos # (Auto) 0.17 0.18 10*3/UL Baso # (Auto) 0.04 0.03 10*3/UL WBC Morphology Comment Normal morphology Normal morphology (NORM) Plt Morphology Comment Normal morphology Normal morphology (NORM) RBC Morph Comment Normal morphology Normal morphology (NORM) VBG pH (7.32-7.42) VBG pCO2 (45-55) mmHg VBG HCO3 (22-26) mmol/L VBG Base Excess (-2-2) MMOL/L Sodium 140 140 (135-145) meq/L Potassium 3.8 4.1 (3.8-5.2) meq/L Chloride 108 109 (98-112) meq/L Carbon Dioxide 24 25 (23-33) meq/L Anion Gap 8 6 (5-20) BUN 8 4 L (7-22) mg/dL Creatinine 0.7 0.7 (0.50-1.20) mg/dL Estimated GFR > 60 > 60 (>60 ml/min/1.73m(2)) BUN/Creatinine Ratio 11.42 5.71 L (6-20) Glucose 94 89 (78-110) mg/dL Calculated Osmolality 287.0 285.0 (267-292) mOsm/kg Lactic Acid < 0.5 L (0.70-2.10) MMOL/L Calcium 7.9 L 8.2 L (8.7-10.7) mg/dL Magnesium (1.6-2.4) mg/dL Total Bilirubin 0.7 (0.3-1.2) mg/dL AST 22 (8-39) IU/L ALT 28 (9-52) IU/L Alkaline Phosphatase 62 (38-126) IU/L C-Reactive Protein (0.0-0.9) mg/dL Total Protein 5.8 L (6.1-8.0) g/dL Albumin 3.1 L (3.5-4.8) g/dL Globulin 2.7 (2.50-4.10) g/dL Albumin/Globulin Ratio 1.10 L (1.3-2.0) mg/g Amylase 44 (30-110) U/L Lipase 43 (23-300) IU/L Ur Collection Type Urine Color Urine Clarity (CLEAR) Urine pH (5.0-8.5) Ur Specific [place] (1.005-1.030) Urine Protein (NEG) mg/dl Urine Glucose (UA) (NEG) mg/dL Urine Ketones (NEG) Urine Occult Blood (NEG) Urine Nitrate (NEG) Urine Bilirubin (NEG) Urine Urobilinogen (0.2) EU/dL Ur Leukocyte Esterase (NEG) Urine RBC (NONE) /hpf Urine WBC (NONE) Ur Squamous Epith Cells (NONE) Ur Renal Epithelial Cell (NONE) Urine Crystals Urine Bacteria (NONE) Urine Casts (NONE) Urine Mucus (NONE) Urine Trichomonas (NONE) Urine Yeast (NONE) Ur Culture Indicated? Patient Problems - Patient Problem List (1) Acute diverticulitis Current Visit: Yes Status: Acute Diagnosis Date: 07/06/16 Priority: High (2) Nausea Current Visit: Yes Status: Acute (3) Pelvic pain Current Visit: Yes Status: Acute (4) Hypothyroidism Current Visit: Yes Status: Acute Qualifiers: Hypothyroidism type: acquired Qualified Description: Acquired hypothyroidism Qualifier Code(s): (E03.9) Hypothyroidism, unspecified
[2016-07-10] MEDS: Ertapenem Inj 1 GM in Sodium Chloride 0.9% 100 ML IV SCH (16:02)
[2016-07-10 16:39] VITALS: RESP 16; TEMP 97.4
--- NOTE | 2016-07-11 07:09 | DI ---
PELVIC ULTRASOUND, 07/10/2016 11:30 AM Clinical History: Acute pelvic pain superimposed on chronic pelvic pain. Previous Exam: None at this facility. Technique: Transvaginal scans are performed. The uterus measures 45 x 40 x 70 mm and has a normal appearance. The central uterine stripe measures 6 mm. In the anterior aspect of the cervix is a cystic structure that has increased echogenicity. Thi s may be a nabothian cyst filled with proteinaceous debris. It measures 1 cm in diameter. The left ov kendra is normal. The right ovary is obscured by gas. There are no fluid collections or masses. Readin. The uterus and left ovary are normal. The right ovary is obscured by gas. 2. There is a 1 cm cystic-appearing structure in the cervix that has increased echogenicity. This ma y represent a nabothian cyst filled with proteinaceous debris rather than fluid.
== END 2016-07-10 18:24 | disposition home or self-care (01) | DRG 392 ==
LOC: ER 19:01 → MED/SURG 22:34 → OBSVTOIN 07-08 11:28
PROVIDERS: ADMIT Internal Medicine; ATTEND Internal Medicine
DX: K57.92 Diverticulitis of intestine, part unspecified, without perforation or abscess without bleeding (principal); R11.0 Nausea; R10.2 Pelvic and perineal pain; E03.9 Hypothyroidism, unspecified
CPT/HCPCS: 36415 ×4; 74177; 80048; 80053 ×2; 81001; 81003; 82150; 82803; 83605 ×2; 83690; 83735; 85025 ×3; 86140; 94640 ×2; 94761; 96361; 96365; 96375; 96376; 99225; 99284 ×2; J3010 ×2; 76830; 87040; J1335; J1644; J1885; J2270; J2405; J7030; J7050

== ENCOUNTER 2016-07-11 23:49 | Emergency (ER) | payer OTHER ==
[2016-07-12] MEDS ORDERED: KETOROLAC 15 MG/1 ML VIAL IVP ONE (00:02)
[2016-07-12] MEDS ORDERED: Sodium Chloride 0.9% 1,000 ML PRIMARY IV ONE (00:02)
[2016-07-12] MEDS ORDERED: NORMAL SALINE 10 ML SYRINGE FLUSH IVP PRN (00:02)
[2016-07-12] MEDS ORDERED: ONDANSETRON 4 MG/2 ML VIAL IVP ONE (00:02)
--- NOTE | 2016-07-12 00:02 | PDOC ---
General Adult HPI - General Chief Complaint: General Medical Stated Complaint: FEELS ILL Date Seen by Provider: 07/12/16 Time Seen by Provider: 00:02 Source: POSITIVE: Patient Exam Limitations: POSITIVE: No limitations - History of Present Illness Initial Comment: Salma Epstein is a 46-year-old woman coming in today with continued body aches and chills. She was recently admitted to this hospital for diverticulitis. She received a few doses of IV Invanz and was discharged on Levaquin and Flagyl. This was yesterday. The patient has not filled the prescription for these medicines and has not been taking them. She states that she slept all day today because she was so fatigued and tired. Her abdominal pain and nausea/ vomiting are a little bit better, although the nausea still present. She reports quite a bit of body aches and fatigue. She denies any urinary symptoms , no chest pain lightheadedness or dizziness. Have you received a tetanus shot in the past 10 years?: Yes - Patient Home Medications Home Medications: Home Medications Trazodone HCl 2 tab PO DAILY tab 01/04/16 Albuterol Sulfate [Proair Hfa] 1 - 2 puff INH Q4-6H #1 inhaler 07/01/16 Cetirizine HCl [Zyrtec] 10 mg PO DAILY #90 tab 07/01/16 Fluticasone Propionate [Flonase Allergy Relief] 9.9 ml TATI BID #1 bottle Levothyroxine Sodium 1 tab PO QHS #30 tab 07/02/16 Hydrocodone/Acetaminophen [[place] 5-325 Tablet] 1 each PO Q6H PRN #20 tablet Levofloxacin [Levaquin] 500 mg PO DAILY #10 tablet 07/10/16 Varenicline Tartrate [Chantix] 1 mg PO BID #60 tablet 07/10/16 metroNIDAZOLE Tab [Flagyl Tab] 500 mg PO TID #24 tab 07/10/16 - Patient Allergies Allergies/Adverse Reactions: Allergies Allergy/AdvReac Type Severity Reaction Status Date / Time No Known Drug Allergies Allergy NOT Verified 07/11/16 23:54 APPLICABLE paint Allergy HIVES Uncoded 07/10/16 06:18 Past Medical History - heen HEENT History: Denies History Cardiovascular History: Denies History Respiratory History: Other (please comment) Additional Respiratory History: CURRENTLY BEING TREATED FOR URI Gastrointestinal History: Other (please comment) Additional Gastrointestinal History: DIAGNOSED WITH DIVERTICULITIS 06/19/16 Genitourinary History: Denies History Endocrine History: Denies History Musculoskeletal History: Back Pain, Other (please comment) Prosthesis or Implant: No Additional Musculoskeletal History: chronic pain Neurological History: Denies History Blood Disorders: Denies History Psychiatric History: Depression, Bi Polar Disorder, ADD History of Sexually Transmitted Diseases: No Cancer History: Denies History History of MDRO: No History of Other Communicable Diseases: No Alcohol Use: None Substance Use Type: None, 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.) Previous Surgical History: No Type / Date of Surgery: LEFT ARM, BILATERAL KNEE SCOPE, CHOLECYSTECTOMY, TUBAL LIGATION Anesthesia Reactions: No Malignant Hyperthermia: No Significant Family History: No pertinent family hx Past Medical History Reviewed: Reviewed - No Changes ROS - Limitations ROS Limitations: No Limitations Constitution: REPORTS: Chills, Weakness Cardiovascular: REPORTS: Denies Cardiac Symptoms Respiratory: REPORTS: Denies Resp Symptoms Neurological: REPORTS: Weakness Gastrointestinal: REPORTS: Nausea Endocrine: REPORTS: Fatigue Musculoskeletal: REPORTS: Muscle Aches Genitourinary: REPORTS: Denies Symptoms Eyes: REPORTS: Denies Symptoms ENT: REPORTS: Denies Symptoms Skin: REPORTS: Denies Skin Symptoms Lympathic: REPORTS: Denies Lympathic Symptoms Immunologic: POSITIVE: Denies Symptoms General Adult Exam - General Appearance General Appearance: POSITIVE: Alert, Cooperative, No Acute Distress - HEENT HEENT: POSITIVE: Head Inspection Nml, Eyes Inspection Nml, Nose Inspection Nml, Oral/Dental Inspect. Nml - Pupils Pupil Size: 2 mm: Bilateral - Neck Neck: POSITIVE: Normal Inspection - Respiratory Respiratory: POSITIVE: No Respiratory Distress, Breath Sounds Normal - Cardiovascular Cardiovascular: POSITIVE: Regular Rate & Rhythm Peripheral Pulses: Radial (R): 2+, Radial (L): 2+ - Abdomen Abdomen: Soft: (All Quadrants), No Guarding: (All Quadrants), No Rebound: (All Quadrants), No Palpabale Mass: (All Quadrants), No Distention: (All Quadrants), No Rigidity: (All Quadrants) - Back Back: POSITIVE: Normal Inspection - Skin Skin: POSITIVE: Normal Color, Dry, Other (Bruising and healing scabs overlying the veins in her lower legs bilaterally with no spreading erythema, no induration and no excessive warmth) - Extremities Extremity: Non-Tender: (All Extremities), Normal ROM: (All Extremities), Normal Inspection: (All Extremities) Additional Extremities Details: She reported some tenderness in her bilateral knees, however both knees are without edema, erythema, or excessive warmth. She has normal range of motion and normal strength, no bony abnormalities. 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 Due to her history of IV drug use we had a difficult time getting IV access. Patient refused any further attempts to even try to obtain blood. She had some blood vessels in her legs that she stated we could use however due to the evidence of recent IV access there from her drug use, we presume, lab was uncomfortable using those sites to obtain blood for testing. Patient that point refused she is also further blood draws. We gave her oral doses of Levaquin and Flagyl as well as Zofran for nausea. She is able to keep down oral intake. Plan we made was to send her home with 1 dose of Zofran as well as a prescription for Zofran to fill in the morning she has her antibiotics filled at the pharmacy and she just has to pick them up. We recommended that she do so we recommend that she refrain from IV drug use and follow up with primary care she verbalized understanding of the recommendations Patient Care Time - Estimated PCT Patient Care Time (In Minutes): 25 Vital Signs - Recent Vital Signs Vital Signs: Vital Signs (Last 8 hours) Temp Pulse Resp BP Pulse Ox 07/11/16 23:55 95.3 F L 99 22 142/87 93 - VS Reviewed Vital Signs Reviewed: Yes Discharge Clinical Impression: Diverticulitis Qualifiers: Diverticulitis site: unspecified part of intestinal tract Diverticulitis bleeding: without bleeding Diverticulitis complication: without perforation or abscess Qualifier Code: (K57.92) Diverticulitis of intestine, part unspecified, without perforation or abscess without bleeding Discharge Disposition: Discharged to Home Condition: Stable Prescriptions / Orders: Ondansetron Odt [Zofran ODT] 4 mg PO TID PRN #10 tab.rapdis PRN Reason: Nausea Additional Instructions: Fill your antibiotic prescriptions later today and take them as directed. Take the zofran for nausea as needed.
[2016-07-12] MEDS ORDERED: Levofloxacin 500mg (Premix) 500 MG in Dextrose 1 BAG IV ONE (00:05)
[2016-07-12] MEDS ORDERED: metroNIDAZOLE 500mg (Premix) 500 MG in Premix 1 BAG IV ONE (00:05)
[2016-07-12 00:11] VITALS: RESP 22; TEMP 95.3
[2016-07-12] MEDS ORDERED: LEVOFLOXACIN 500 MG IV ONE (00:17)
[2016-07-12] MEDS ORDERED: LEVOFLOXACIN 500 MG TABLET PO ONE (01:04)
[2016-07-12] MEDS ORDERED: Ondansetron ODT Tab 4 MG TAB PO ONE (01:04)
[2016-07-12] MEDS ORDERED: metroNIDAZOLE Tab 500 MG TAB PO ONE (01:04)
[2016-07-12] MEDS ORDERED: Ondansetron ODT Tab 4 MG TAB PO SCH (01:30)
== END 2016-07-12 01:39 | disposition home or self-care (01) ==
LOC: ER 23:49
DX: K57.12 Diverticulitis of small intestine without perforation or abscess without bleeding (principal); R11.0 Nausea; M79.1 Myalgia
CPT/HCPCS: 99283; J1885; J1956; J2405; J3490; J7030

== ENCOUNTER → 2016-07-18 | Outpatient (CLI) | payer OTHER | LOC: MMPC 11:11 | PROVIDERS: ATTEND Surgery | DX: K57.32 Diverticulitis of large intestine without perforation or abscess without bleeding (principal) | CPT/HCPCS: 99212; G0463 ==

== ENCOUNTER 2016-08-11 21:40 | Emergency (ER) | payer OTHER ==
--- NOTE | 2016-08-11 22:11 | PDOC ---
Lower Extremity Problem HPI - General Chief Complaint: Lower Extremity Problem/Injury Stated Complaint: Rt foot lft knee pain Date Seen by Provider: 08/11/16 Time Seen by Provider: 22:05 Source: POSITIVE: Patient Exam Limitations: POSITIVE: No limitations Nurse's Notes Reviewed & Considered: Yes - History of Present Illness Initial Comments: This 46-year-old female comes in today with chief complaint of right ankle pain and left knee pain. Approximately 2 hours prior to presentation patient walked out of the bathroom and stepped on a black cat which she did not see. This caused her to fall rolling her right ankle and landing on her left knee. She took a hydrocodone at that time and then was able to contact a neighbor to bring her in for evaluation. To ambulate without much difficulty. She denies any headaches, chest pain, shortness of breath, nausea vomiting or diarrhea, no fever chills or sweats. Body Location Affected: REPORTS: Lower Extremity (L), Lower Extremity (R) Timing: REPORTS: Abrupt Duration: 1-3 hours Severity: Moderate Recent Injury: REPORTS: Yes Context of Injury: REPORTS: Fall Location at Time of Onset: REPORTS: Home Quality: REPORTS: "Pain", Sharpness, Throbbing, Tenderness Modifying Factors: REPORTS: Movement, Rest Similar Symptoms Previously: No Recent Care Received: REPORTS: Denies Any Prior Injuries Related to Current Complaint?: No - Patient Home Medications Home Medications: Home Medications Trazodone HCl 2 tab PO DAILY tab 01/04/16 Hydrocodone/Acetaminophen [[facility] 5-325 Tablet] 1 each PO Q6H PRN #20 tablet - Patient Allergies Allergies/Adverse Reactions: Allergies Allergy/AdvReac Type Severity Reaction Status Date / Time No Known Drug Allergies Allergy NOT Verified 08/11/16 21:46 APPLICABLE paint Allergy HIVES Uncoded 08/11/16 21:46 Past Medical History - heen HEENT History: Denies History Cardiovascular History: Denies History Respiratory History: Other (please comment) Additional Respiratory History: CURRENTLY BEING TREATED FOR URI Gastrointestinal History: Other (please comment) Additional Gastrointestinal History: DIAGNOSED WITH DIVERTICULITIS 06/19/16 Genitourinary History: Denies History Endocrine History: Denies History Musculoskeletal History: Back Pain, Other (please comment) Prosthesis or Implant: No Additional Musculoskeletal History: chronic pain Neurological History: Denies History Blood Disorders: Denies History Psychiatric History: Depression, Bi Polar Disorder, ADD History of Sexually Transmitted Diseases: No Cancer History: Denies History History of MDRO: No History of Other Communicable Diseases: No Alcohol Use: None Substance Use Type: None, 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.) Previous Surgical History: No Type / Date of Surgery: LEFT ARM, BILATERAL KNEE SCOPE, CHOLECYSTECTOMY, TUBAL LIGATION Anesthesia Reactions: No Malignant Hyperthermia: No Significant Family History: No pertinent family hx ROS - Limitations ROS Limitations: No Limitations Constitution: REPORTS: Denies Symptoms Cardiovascular: REPORTS: Denies Cardiac Symptoms Respiratory: REPORTS: Denies Resp Symptoms Neurological: REPORTS: Denies Neuro Symptoms Gastrointestinal: REPORTS: Denies GI Symptoms Endocrine: REPORTS: Denies Symptoms Musculoskeletal: REPORTS: Joint Pain Genitourinary: REPORTS: Denies Symptoms Eyes: REPORTS: Denies Symptoms ENT: REPORTS: Denies Symptoms Skin: REPORTS: Denies Skin Symptoms Lympathic: REPORTS: Denies Lympathic Symptoms Immunologic: POSITIVE: Denies Symptoms Psychiatric: POSITIVE: Denies Psych Symptoms Lower Ext Problem Exam - General Appearance General Appearance: POSITIVE: Alert, Cooperative, No Acute Distress - Extremities Lower Extremity: POSITIVE: Ankle (Right lateral ankle and foot pain with swelling and bruising over the fifth metacarpal head.), Other (Tenderness of the left knee, greatest at the patella. No abrasions or bruising are noted.) Joint Exam: POSITIVE: Normal Weight Bearing, Limited ROM (Secondary to pain), Painful Vascular: POSITIVE: No Vascular Compromise, Full Pulses, Equal Pulses (Dorsalis pedis) - Neuro / Psych Neuro/Psych: POSITIVE: Sensation Normal, Motor Normal, Oriented to Person, Oriented to Place, Oriented to Time, Mood Appropriate, Affect Appropriate - Skin Skin: POSITIVE: Normal Color, Warm, Dry, No Rash - HEENT HEENT: POSITIVE: Head Inspection Nml, Eyes Inspection Nml, Ears Inspection Nml, Nose Inspection Nml, PERRL, EOMI - Respiratory / CVS Respiratory / CVS: POSITIVE: No Respiratory Distress Images - Uploaded Photos Uploaded Photos: Lower Ext Problem Progress - Results Reviewed by me Xrays/CTs/US Reviewed by me: Yes Discussed with Radiologist: No - Patient's Progress Pain Medication Addressed: POSITIVE: Other (Please Comment) (Patient had already taken [facility].) Re-Examine Time: 23:08 Status: POSITIVE: Improved MDM / ED Course: Patient was examined, radiographic examinations were taken. Findings: X-ray of right ankle per my interpretation shows no acute osseous abnormalities. X-ray of her left knee shows no acute osseous abnormalities. Assessment: Fall with left knee and right ankle pain. Plan: Discharge home, ice, elevation, rest, ibuprofen and Tylenol as needed. Workup in 7-10 days if no improvement for any imaging. Cannot rule out occult fractures. This was discussed with the patient she understands need follow-up. - Consult Counseled: POSITIVE: Patient, RE: Radiology Results, RE: DX, RE: Need for F/U Patient Care Time - Estimated PCT Patient Care Time (In Minutes): 20 Vital Signs - VS Reviewed Vital Signs Reviewed: Yes Discharge Clinical Impression: Sprain of ankle Discharge Disposition: Discharged to Home Condition: Good Patient Instructions Given at Discharge: Ankle Sprain (ED)
--- NOTE | 2016-08-11 23:22 | DI ---
HISTORY: Pain after falling and twisting the right ankle. COMPARISON: None available. FINDINGS: Examination demonstrates anatomic alignment without acute fracture. There is an old avulsion fracture of the medial malleolus. The ankle mortise is preserved however, there is a small osteochondral defect involving the lateral t alar dome. IMPRESSION: 1. 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 Consider orthopedic consulta tion for management.
--- NOTE | 2016-08-11 23:26 | DI ---
Clinical History: Head after falling on left knee. Previous Exam: January 04, 2016 Findings: 3 views of the left knee are obtained, and demonstrate anatomic alignment without fractures. The surr ounding soft tissues are unremarkable. Impression: Normal left hand.
[2016-08-12 01:45] VITALS: RESP 18; TEMP 96.9
== END 2016-08-11 23:32 | disposition home or self-care (01) ==
LOC: ER 21:40
DX: S93.401A Sprain of unspecified ligament of right ankle, initial encounter (principal); S90.31XA Contusion of right foot, initial encounter; M25.562 Pain in left knee; W01.0XXA Fall on same level from slipping, tripping and stumbling without subsequent striking against object, initial encounter
CPT/HCPCS: 73564; 73610; 99282

== ENCOUNTER → 2016-09-03 | Outpatient (CLI) | payer OTHER ==
[2016-09-03 13:00] LABS: FREE T4 (FREE THYROXINE) 0.82 ng/dL (0.93-1.71)
[2016-09-03 13:14] LABS: HEMOGLOBIN A1C 5.13 % (4.2-6.0)
== END ==
LOC: MOB LAB 11:22
PROVIDERS: ATTEND Obstetrics & Gynecology
DX: E28.2 Polycystic ovarian syndrome (principal); E03.9 Hypothyroidism, unspecified; E66.8 Other obesity; N92.0 Excessive and frequent menstruation with regular cycle; N94.6 Dysmenorrhea, unspecified; Z79.899 Other long term (current) drug therapy; Z30.013 Encounter for initial prescription of injectable contraceptive; F17.200 Nicotine dependence, unspecified, uncomplicated
CPT/HCPCS: 36415; 58100; 81025; 83036; 84439; 84443; 99213

== ENCOUNTER → 2016-09-04 | Outpatient (CLI) | payer OTHER ==
--- NOTE | 2016-09-05 10:28 | DI ---
CT BONE DENSITOMETRY OF THE SPINE AND HIP, 09/04/2016 10:02 AM : Clinical History: The patient is at risk for developing osteoporosis. Previous Exam: None at this facility. 3D Quantitative CT (QCT) Bone Mineral Densitometry: The [place] scans are normal. Low dose scans are sampled through the midbodies of L1 and L2. Average bone mineral density (BMD) is 150.7 mg/mL corresponding to a volumetric T-score of -0.7, and Z-score of 0.1. The [employer]'s (ACR) volumetric QCT BMD conversion table categorizes thi s patient as having normal bone mineral density of the lumbar spine. CT X-Ray Absorptiometry (CTXA) Bone Mineral Densitometry of the Left Hip: Total hip BMD: 883 mg/cm2 T-score: -0.3 Z-score: -0.1 Femoral neck BMD: 785 mg/cm2 T-score: -0.1 Z-score: 0.3 READIN. The QCT lumbar spine BMD value by ACR's 3D volumetric to 2D areal conversion categorizes this pat ient as having normal bone mineral density of the lumbar spine. The QCT spine T-score is -0.7. 2. The CTXA total hip and femoral neck BMD T-scores are -0.3 and -0.1, respectively. The left total hip T-score indicates this patient has normal bone mineral density of the total hip.
== END ==
LOC: CT 10:57
PROVIDERS: ATTEND Obstetrics & Gynecology
DX: Z79.899 Other long term (current) drug therapy (principal); E03.9 Hypothyroidism, unspecified; E66.8 Other obesity; G47.33 Obstructive sleep apnea (adult) (pediatric); Z30.42 Encounter for surveillance of injectable contraceptive; F15.20 Other stimulant dependence, uncomplicated; F17.210 Nicotine dependence, cigarettes, uncomplicated; N92.0 Excessive and frequent menstruation with regular cycle; N94.6 Dysmenorrhea, unspecified
CPT/HCPCS: 77078; 99214; G0463